=== PATIENT | female | born 1965 | race Caucasian/White ===

== ENCOUNTER 2020-02-05 08:28 | Outpatient (CLI) | payer MEDICARE, SELFPAY ==
--- NOTE | ~2020-02-05 | MM_ITS ---
EXAMINATION: MM screening robles BI w kristina HISTORY: Screening TECHNIQUE: Craniocaudal and mediolateral oblique 3-D tomosynthesis images were obtained and synthetic 2-D images were generated. CAD analysis was submitted and interpreted. COMPARISON: No prior mammogram is available for comparison at this institution. BREAST PARENCHYMAL COMPOSITION: Breast composed of scattered areas of fibroglandular density. FINDINGS: There is no evidence of suspicious mass, calcification, or architectural distortion to sugg est malignancy in either breast. There has been no suspicious interval change. IMPRESSION: 1. No mammographic evidence of malignancy. 2. Recommend routine screening mammography in one year. BI-RADS Category 1: Negative Reviewed, dictated and finalized at location A. TUTOR
--- NOTE | ~2020-02-05 | DEXA_ITS ---
Bone Density Report Name: Tania Rose Age: 54 Sex: Female Ethnicity: White Date of : 1965 Indication: postmenopausal; screening for osteoporosis; Referring Provider: Leann Woody Study: Bone densitometry was performed. Exam Date: February 05, 2020 Accession number: [id number] Bone Density: Region BMD T-score Z-score Classification AP Spine(L1-L4) 0.826 -2.0 -1.1 Osteopenia Femoral Neck (Left) 0.631 -2.0 -1.1 Osteopenia Total Hip (Left) 0.810 -1.1 -0.5 Osteopenia Femoral Neck (Right) 0.657 -1.7 -0.9 Osteopenia Total Hip (Right) 0.835 -0.9 -0.3 Normal Femoral Neck Mean 0.644 -1.8 -1.0 Osteopenia Total Hip Mean 0.823 -1.0 -0.4 Normal World Health Organization criteria for BMD impression classify patients as: Normal (T-score at or above -1.0), Osteopenia (T-score between -1.0 and -2.5), or Osteoporosis (T-score at or below -2.5). 10-year Fracture Risk(1): Major Osteoporotic Fracture 10% Hip Fracture 2.0% Reported Risk Factors: [place] (), Neck BMD=0.631, BMI=43.3, previous fracture, smoking, secondary osteoporosis (1) FRAX(R) Version 3.08. Fracture probability calculated for an untreated patient. Fracture probability may be lower if the patient has received treatment. Impression: The patient has low bone mass, based on the Total Spine T-score. Discussion: BONE DENSITY IS LOW AT ONE OR MORE SKELETAL SITES. This patient's lowest T-score is low at one or more skeletal sites. It meets the World Health Organization's (WHO) criteria for ?low bone mass? (T-score between -1.0 and -2.5). The patient's 10-year risk of fracture as calculated by FRAX is less than the threshold where pharmacological therapy is recommended by the National Osteoporosis Foundation (NOF). However, all treatment decisions require clinical judgment and consideration of individual patient factors, including patient preferences, comorbidities, previous drug use, risk factors not captured in the FRAX model (e.g., frailty, falls, vitamin D deficiency, increased bone turnover, interval significant decline in bone density) and possible under or overestimation of fracture risk by FRAX. The patient should follow a healthful lifestyle (good nutrition with adequate calcium and vitamin D, and appropriate weight-bearing exercise). Follow-Up: Consider repeating this study in 2 to 3 years to reassess this patient's status, or sooner if there is some new clinical indication. Reported by: Dr. Gianni Zhou on 02/05/2020 9:10:00 AM. Reviewed, dictated and finalized at location A. [facility]PITALLucretia
== END 2020-02-05 08:29 | disposition home or self-care (01) ==
LOC: CHSIMG 08:33
PROVIDERS: PCP Family Medicine; Visit Provider Family Medicine
DX: Z12.31 Encounter for screening mammogram for malignant neoplasm of breast (principal); Z78.0 Asymptomatic menopausal state
CPT/HCPCS: 77063; 77067; 77080

== ENCOUNTER 2021-10-09 11:44 | Outpatient (CLI) | payer MEDICARE, MEDICAID, SELFPAY ==
--- NOTE | ~2021-10-09 | CT_ITS ---
EXAMINATION: CT lung screening DATE: 10/09/2021 12:10 INDICATION: Personal history of tobacco dependence TECHNIQUE: Computed tomography (CT) of the chest was performed without intravenous contrast. The dose -length product was 560.36 mGy-cm. Automated exposure control and iterative reconstruction technique were employed. COMPARISON: No prior studies for comparison. FINDINGS: No significant pleural or pericardial effusion. Heart size normal. No thoracic lymphadenopathy. There are calcified mediastinal lymph nodes, consistent with chronic granulomatous disease. No evidence fo r aortic aneurysm. There are calcified granulomas in the spleen. Status post cholecystectomy. There i s an ossific density in the gastric lumen, possible foreign body ingestion. There is linear scarring/ atelectasis in the left upper lobe. No endobronchial lesions. There is a 1 cm nodule in the right mid dle lobe. There is a suture line in the left upper lobe. IMPRESSION: 1. Lung Rads category 4A, suspicious: 3 month follow-up low dose CT or PET/CT scan is recommended. 2: Curvilinear ossific density in the stomach, possibly ingested foreign body. Reviewed, dictated and finalized at location A. IMPRESSION: 1. Lung Rads category 4A, suspicious: 3 month follow-up low dose CT or PET/CT s can is recommended. 2: Curvilinear ossific density in the stomach, possibly ingested foreign body.
[2021-10-09 12:34] LABS: Iron 47 ug/dL (37-170)
[2021-10-09 12:44] LABS: Percent Iron Saturation 13 % (20-50)
[2021-10-09 13:05] VITALS: PULSE 99; O2SAT 95
[2021-10-09 13:10] VITALS: PULSE 119; O2SAT 94
[2021-10-09 13:20] VITALS: PULSE 96; O2SAT 95
--- NOTE | 2021-10-09 14:46 | HOMEO2EVAL ---
Evaluation was performed at [facility] Home Oxygen Evaluation RC: Home Oxygen (O2) Evaluation Start: 10/09/21 14:11 Freq: Status: Active Protocol: RPE Activity Type Activity Date Activity User E-sign Co-sign Detail Recorded Client Recorded Date Recorded By Document 10/09/21 13:05 DJO [email or web address] 10/09/21 14:45 DJO Document 10/09/21 13:10 DJO [email or web address] 10/09/21 14:45 DJO Document 10/09/21 13:20 DJO [email or web address] 10/09/21 14:45 DJO 10/09/21 10/09/21 10/09/21 13:05 13:10 13:20 Home O2 Evaluation Test Phase Resting Exercise Resting Oxygen Delivery Room Air Room Air Room Air Pulse Oximetry (90-100 %) 95 94 95 Pulse Rate (60-100 beats/min) 99 119 H 96 Activity Tolerance Good Rating of Perceived Dyspnea (PD) +3 Moderate Difficulty, But Can Continue Ambulation Distance (feet) 1,000 Ambulation Distance (meters) 304.78 Treatment Charges O2 Evaluation - Outpatient
--- NOTE | 2021-10-12 13:10 | WPDPFTINT ---
PFT Procedure Performed PFT Procedure Performed Spirometry with Pre/Post Bronchodilator Plethysmography (Lung Vol) Diffusing Cap (DLCO) Flow Vol Loop PFT Interpretation Lung volumes were measured with the body plethysmography method. The severely reduced expiratory reserve volume is related to morbid obesity. The remaining lung volumes are unremarkable. Spirometry showed diminished expiratory flow rates and a normal FEV1 to FVC ratio of 80%. Following administration of a bronchodilator there was no significant increase in expiratory flow rates. Lung diffusion capacity is mildly reduced at 62% predicted. The flow volume loop is unremarkable. The restrictive pattern on spirometry in the face of a normal total lung capacity is indicative of a nonspecific pattern. Impression: Nonspecific pattern. Mild reduction in lung diffusion capacity.
== END 2021-10-09 11:45 | disposition home or self-care (01) ==
PROVIDERS: PCP Family Medicine; Visit Provider Nurse Practitioner Family
DX: R06.09 Other forms of dyspnea (principal); J44.9 Chronic obstructive pulmonary disease, unspecified; G25.81 Restless legs syndrome; M25.50 Pain in unspecified joint; Z12.2 Encounter for screening for malignant neoplasm of respiratory organs; Z87.891 Personal history of nicotine dependence
CPT/HCPCS: 36415; 71271; 82728; 83540; 83550; 94060; 94618; 94726; 94729

== ENCOUNTER 2021-10-15 13:35 | Outpatient (CLI) | payer MEDICARE, MEDICAID, SELFPAY ==
[2021-10-21 14:45] LABS: Alpha-1-Antitrypsin, QN 128 mg/dL (83-199)
== END 2021-10-15 13:36 | disposition home or self-care (01) ==
LOC: CHSLAB 13:39
PROVIDERS: PCP Family Medicine; Visit Provider Nurse Practitioner Family
DX: Z14.8 Genetic carrier of other disease (principal)
CPT/HCPCS: 36415; 82103

== ENCOUNTER 2021-11-05 07:20 | Outpatient (CLI) | payer MEDICARE, MEDICAID, SELFPAY ==
--- NOTE | ~2021-11-05 | PE_ITS ---
EXAMINATION: PET skull to mid thigh DATE: 11/05/2021 09:06 INDICATION: Solitary pulmonary nodule TECHNIQUE: Blood glucose level was 125 mg/dL. 11.33 mCi of 18-fluorodeoxyglucose (18-FDG) was adminis tered i.v. Low dose computed tomography (CT) images were acquired from the base of the brain to the p roximal thighs for attenuation correction and anatomic localization. Positron emission tomography (PE T) images were acquired in the same distribution beginning 62 minutes after injection. The dose-lengt h product (DLP) was 1319.67 mGy-cm. COMPARISON: 10/09/2021 FINDINGS: Head/neck: No abnormal FDG uptake is identified. FDG uptake in the oral cavity and vocal cords withou t suspicious CT correlate is likely physiologic. Chest: There is a 9 mm nodule of the right middle lobe without associated FDG uptake. There is mild d iffuse background FDG uptake in the lungs. The lungs are free of focal airspace opacities. No pleural effusion or pneumothorax. No pathologically enlarged thoracic lymph nodes are identified. The heart size is normal. Abdomen/pelvis/proximal thighs: No abnormal FDG uptake is identified. Physiologic FDG activity is pre sent in the bowel and urinary tract. The gallbladder is surgically absent. The liver, spleen, pancrea s, and adrenal glands are normal. The kidneys are unremarkable. No pathologically enlarged abdominal or pelvic lymph nodes are identified. There is no free intraperitoneal gas or evidence of bowel obstr uction. Musculoskeletal: No abnormal FDG uptake is identified. IMPRESSION: 1. 9 mm nodule of the right middle lobe without associated FDG uptake, probably benign. Follow-up low -dose CT in six months is recommended. Reviewed, dictated and finalized at location B. IMPRESSION: 1. 9 mm nodule of the right middle lobe without associated FDG uptake, probably benign. Follow-up low-dose CT in six months is recommended.
[2021-11-05 07:45] LABS: Glucose Point of Care 125 mg/dl (65-105)
== END 2021-11-05 07:21 | disposition home or self-care (01) ==
LOC: ANHIMG 07:24
PROVIDERS: PCP Family Medicine; Visit Provider Internal Medicine Critical Care Medicine
DX: R91.1 Solitary pulmonary nodule (principal)
CPT/HCPCS: 78815; A9552

== ENCOUNTER 2021-11-10 07:52 | Outpatient (CLI) | payer MEDICARE, MEDICAID, SELFPAY ==
--- NOTE | 2021-12-17 10:19 | WPDSLEEPSTUD ---
Sleep Study Date of Study: 11/10/21 Ordering Provider: Luba John MD Interpreting Physician: Luba John MD Sleep Study Type: CPAP Titration Height: 1.55 m Weight: 117.48 kg Body Mass Index: 48.9 Neck Circumference (inches): 19.5 [place]: 13 Reason for Sleep Study obstructive sleep apnea, has gained weight in the last year and her current setting is not effective, she presents for a titration Sleep History Tania Rose is a 56-year-old female with obstructive sleep apnea syndrome. She has been using 9 cm of water pressure but over the last year this is less effective. She is compliant. She has complaints of insomnia, and she has used hydroxyzine with some help. She is extremely short of breath on lying down at night, cannot catch her breath. She reports gaining 24 lb in the last year, now 246 lb. The titration a year ago showed that she needed 13 cm and she was using 9 cm until recently. She feels like she is losing her breath at night. She has difficulty falling asleep and staying asleep. She constantly awakens from sleep feeling short of breath, with heartburn belching and coughing, with loud snoring. She constantly has trouble sleeping with a cold. She always gasps for breath at night. She constantly sweats excessively at night. She rarely notices her heart pounding or beating irregularly at night. She does not fall asleep during the day, does not fall asleep involuntarily or while driving. She does not have loss of muscle tone with strong emotion. She does not have daytime difficulties due to excessive sleepiness. She does not feel paralyzed on waking or falling asleep. She does not have vivid dreamlike scenes on waking or falling asleep. She does not feel afraid to go to sleep. She rarely has nightmares. She constantly remembers her dreams. She rarely has racing thoughts. She occasionally feels sad or depressed. She does not have anxiety. She constantly has muscular tension and notices parts of her body jerking. She constantly kicks at night. She constantly has crawling and aching feelings in her legs. She does not have any kind of leg pain at night or have morning jaw pain. She constantly grinds her teeth during sleep. She constantly is bothered by pain during the day and awakened by pain at night. She constantly wakes up feeling stiff in the morning with sore achy muscles and pain in the neck and spine. She has headaches, depression, and she feels panicky. Normal bedtime is 7:30 p.m. taking a few hours to fall asleep typically waking 6 times at night to watch television. She will stay awake for an hour. She wakes the morning by 8:00 a.m.. Weekend schedule is the same. She estimates getting 5 hours of sleep at night. She denies taking naps in the day. A short nap lasting 10 or 15 minutes is not refreshing. She is usually drowsy for 2 hours after waking. She feels better in the morning compared to other times of day. Habits: Quit tobacco. Caffeine 8 glasses a day. No alcohol or recreational drugs. [facility] Past Medical History Medical History Anxiety Arthritis Asthma Carpal tunnel syndrome delivery delivered Chronic GERD COPD (chronic obstructive pulmonary disease) Migraines Osteoporosis Sciatica Thyroid disease Ulcer Surgical History Surgical History History of hysterectomy History of lung surgery lung needle biopsy per patient many years ago Hx of cholecystectomy Family History Family History Father Hypertension Mother Asthma Depression Cerebrovascular accident Social History Social History Smoking packs per day: 1 Smoking cigarettes per day: 20.0 Years smoked: 30 Smoking pack-years: 30.00 Smoking status: Current every day s
[2021-12-17 11:03] VITALS: BMI 48.9
== END 2021-11-11 03:46 | disposition home or self-care (01) ==
PROVIDERS: PCP Family Medicine; Visit Provider Internal Medicine Critical Care Medicine
DX: G47.33 Obstructive sleep apnea (adult) (pediatric) (principal); G25.81 Restless legs syndrome; Z72.821 Inadequate sleep hygiene
CPT/HCPCS: 95811

== ENCOUNTER 2022-12-06 13:38 | Emergency (ER) | payer MEDICARE, MEDICAID, SELFPAY ==
[2022-12-06 13:41] VITALS: BP 125/63; PULSE 78; RESP 20; TEMP 36.8; O2SAT 95
--- NOTE | 2022-12-06 13:56 | ED.LOWEXIN ---
HPI - Extremity Injury (Lower) General Chief Complaint: Extremity Injury, Upper Stated Complaint: Fall/ L hip pain Time Seen by Provider: 12/06/22 13:52 Source: patient Mode of arrival: ambulatory Limitations: no limitations History of Present Illness HPI Narrative: 57 year old female presents to the Emergency Department complaining of pain to hip [left buttock region]. Patient states she fell 12/02/22. She was seen by Primary Care Physician and x-rays were performed which were negative. States she continues to have pain. She normally takes Hydrocodone 7.5 mg 2x/day. MD complaint: hip injury Onset (ago): day(s) (4 days ago) Type of Injury: other (fall) Place: home Relieving factors: nothing Exacerbating factors: palpation Context: fall Related Data Home Medications Medication Instructions Recorded Confirmed aripiprazole 10 mg tablet 10 mg PO DAILY 09/17/21 12/06/22 atorvastatin 80 mg tablet 80 mg PO QHS 09/17/21 12/06/22 calcium carbonate 600 mg-vitamin 1 cap PO BID 09/17/21 12/06/22 D3 10 mcg (400 unit) capsule cetirizine 10 mg tablet 10 mg PO DAILY PRN ALLERGIES 09/17/21 12/06/22 cholecalciferol (vitamin D3) 25 25 mcg PO DAILY 09/17/21 12/06/22 mcg (1,000 unit) capsule cyanocobalamin (vitamin B-12) 1,000 mcg IM MONTHLY 09/17/21 12/06/22 1,000 mcg/mL injection kit denosumab 60 mg/mL subcutaneous 60 mg subcut [id number] 09/17/21 12/06/22 syringe (Prolia) fluoxetine 20 mg capsule 20 mg PO DAILY 09/17/21 12/06/22 fluticasone propionate 50 2 spray intranasal DAILY 09/17/21 12/06/22 mcg/actuation nasal spray,suspension galcanezumab-gnlm 120 mg/mL 120 mg subcut MONTHLY 09/17/21 12/06/22 subcutaneous pen injector (Emgality Pen) hydrocodone 5 mg-acetaminophen 325 1 - 2 tablet PO BID PRN Pain 09/17/21 12/06/22 mg tablet levothyroxine 200 mcg tablet 200 mcg PO DAILY 09/17/21 12/06/22 (Synthroid) nystatin 100,000 unit/gram topical 1 applic topical TID PRN IRRITATION 09/17/21 12/06/22 powder omega 8-ydl-xus-fish oil 60 mg-90 1 cap PO DAILY 09/17/21 12/06/22 mg-500 mg capsule (Fish Oil) pantoprazole 40 mg tablet,delayed 40 mg PO QAM 09/17/21 12/06/22 release gabapentin 600 mg tablet 300 mg PO QHS 03/31/22 12/06/22 alprazolam 0.5 mg tablet 0.5 mg PO BID 12/06/22 12/06/22 trazodone 100 mg tablet 100 mg PO HS PRN Insomnia 12/06/22 12/06/22 Allergies Allergy/AdvReac Type Severity Reaction Status Date / Time acetaminophen AdvReac Unknown Unknown Verified 12/06/22 13:52 [From Darvocet-N 100] codeine AdvReac Unknown Nausea Verified 12/06/22 13:52 cyclobenzaprine AdvReac Unknown sedating Verified 12/06/22 13:52 propoxyphene AdvReac Unknown Unknown Verified 12/06/22 13:52 [From Darvocet-N 100] tizanidine AdvReac Unknown Hypotension Verified 12/06/22 13:52 Review of Systems Review of Systems: All systems reviewed & are unremarkable except as noted in HPI and below Constitutional: Constitutional: Reports as per HPI and Reports no additional constitutional complaints Eyes: Eyes: Reports as per HPI ENT: Reports system reviewed and no additional complaints, except as documented Cardiovascular: Cardiovascular: Reports as per HPI Respiratory: Respiratory: Reports as per HPI Gastrointestinal: Gastrointestinal: Reports as per HPI Genitourinary: Genitourinary: Reports no additional female genitourinary complaints Musculoskeletal: Musculoskeletal: Reports no additional musculoskeletal complaints and Reports as per HPI Comments: pain left buttock region Integumentary/Breasts: Skin/Breast: Reports system reviewed and no additional complaints, except as docu Neurologic: Reports system reviewed and no additional complaints, except as documented PMF Past Medical History Medical History Anxiety Arthritis Asthma Carpal tunnel syndrome delivery delivered Chronic GERD COPD (chronic obstructive pulmonary disease) Migrain
[2022-12-06] MEDS: methylPREDNISolone ACETATE 40 MG/ML VIAL 80 MG IM (14:09)
[2022-12-06 14:18] VITALS: BP 126/62; PULSE 84; RESP 19; TEMP 36.6; O2SAT 98
== END 2022-12-06 14:25 | disposition home or self-care (01) ==
LOC: CHSED 14:15
PROVIDERS: Emergency Provider Emergency Medicine; PCP Family Medicine
DX: M54.32 Sciatica, left side (principal); J44.9 Chronic obstructive pulmonary disease, unspecified; M81.0 Age-related osteoporosis without current pathological fracture; K21.9 Gastro-esophageal reflux disease without esophagitis; F41.9 Anxiety disorder, unspecified; E07.9 Disorder of thyroid, unspecified; Z87.891 Personal history of nicotine dependence; F12.90 Cannabis use, unspecified, uncomplicated; Z79.891 Long term (current) use of opiate analgesic; Z79.620 Long term (current) use of immunosuppressive biologic; Z79.51 Long term (current) use of inhaled steroids
CPT/HCPCS: 96372; 99283; J1030

== ENCOUNTER 2023-01-16 15:57 | Emergency (ER) | payer MEDICARE, MEDICAID, SELFPAY ==
--- NOTE | ~2023-01-16 | XR_ITS ---
EXAM: XR ankle RT min 3V DATE: 01/16/2023 16:47 HISTORY: felt pop this morning, pain laterally hx 2 fx of rt ankle . COMPARISON: None available. FINDINGS: Normal mineralization. Circumscribed ossific fragment adjacent to the medial malleolus. Mi ld degenerative change at the tibiotalar joint. No lytic or blastic lesion. Achilles and plantar enth esopathy. No erosion or periosteal change. Soft tissues within normal limits. IMPRESSION: Ossific fragment adjacent to the medial malleolus, likely representing an old avulsion fr acture fragment, unless accompanied by acute pain/tenderness. Otherwise, no acute osseous finding in the right ankle. Reviewed, dictated and finalized at location K. CS OFFICER IMPRESSION: Ossific fragment adjacent to the medial malleolus, likely represent ing an old avulsion fracture fragment, unless accompanied by acute pain/tendern ess. Otherwise, no acute osseous finding in the right ankle.
[2023-01-16 15:57] VITALS: BP 115/65; PULSE 78; RESP 20; TEMP 36.6; O2SAT 100
--- NOTE | 2023-01-16 16:30 | ED.LOWEXIN ---
HPI - Extremity Injury (Lower) General Chief Complaint: Extremity Problem,Nontraumatic Stated Complaint: ankle pain Source: patient and RN notes reviewed Mode of arrival: ambulatory Limitations: no limitations History of Present Illness MD complaint: ankle injury Onset (ago): hour(s) (4) Type of Injury: inversion Place: home Severity: moderate Relieving factors: rest Exacerbating factors: weight bearing, movement and palpation Context: walking Associated symptoms: snap/pop sensation Other symptoms: none Related Data Home Medications Medication Instructions Recorded Confirmed aripiprazole 10 mg tablet 10 mg PO DAILY 09/17/21 12/06/22 atorvastatin 80 mg tablet 80 mg PO QHS 09/17/21 12/06/22 calcium carbonate 600 mg-vitamin 1 cap PO BID 09/17/21 12/06/22 D3 10 mcg (400 unit) capsule cetirizine 10 mg tablet 10 mg PO DAILY PRN ALLERGIES 09/17/21 12/06/22 cholecalciferol (vitamin D3) 25 25 mcg PO DAILY 09/17/21 12/06/22 mcg (1,000 unit) capsule cyanocobalamin (vitamin B-12) 1,000 mcg IM MONTHLY 09/17/21 12/06/22 1,000 mcg/mL injection kit denosumab 60 mg/mL subcutaneous 60 mg subcut [id number] 09/17/21 12/06/22 syringe (Prolia) fluoxetine 20 mg capsule 20 mg PO DAILY 09/17/21 12/06/22 fluticasone propionate 50 2 spray intranasal DAILY 09/17/21 12/06/22 mcg/actuation nasal spray,suspension galcanezumab-gnlm 120 mg/mL 120 mg subcut MONTHLY 09/17/21 12/06/22 subcutaneous pen injector (Emgality Pen) hydrocodone 5 mg-acetaminophen 325 1 - 2 tablet PO BID PRN Pain 09/17/21 12/06/22 mg tablet levothyroxine 200 mcg tablet 200 mcg PO DAILY 09/17/21 12/06/22 (Synthroid) nystatin 100,000 unit/gram topical 1 applic topical TID PRN IRRITATION 09/17/21 12/06/22 powder omega 8-dym-odh-fish oil 60 mg-90 1 cap PO DAILY 09/17/21 12/06/22 mg-500 mg capsule (Fish Oil) pantoprazole 40 mg tablet,delayed 40 mg PO QAM 09/17/21 12/06/22 release gabapentin 600 mg tablet 300 mg PO QHS 03/31/22 12/06/22 alprazolam 0.5 mg tablet 0.5 mg PO BID 12/06/22 12/06/22 trazodone 100 mg tablet 100 mg PO HS PRN Insomnia 12/06/22 12/06/22 Allergies Allergy/AdvReac Type Severity Reaction Status Date / Time acetaminophen AdvReac Unknown Unknown Verified 12/06/22 13:52 [From DarHaloadcet-N 100] codeine AdvReac Unknown Nausea Verified 12/06/22 13:52 cyclobenzaprine AdvReac Unknown sedating Verified 12/06/22 13:52 propoxyphene AdvReac Unknown Unknown Verified 12/06/22 13:52 [From Darvocet-N 100] tizanidine AdvReac Unknown Hypotension Verified 12/06/22 13:52 Review of Systems Review of Systems: All systems reviewed & are unremarkable except as noted in HPI and below PMFSH Past Medical History Medical History Anxiety Arthritis Asthma Carpal tunnel syndrome delivery delivered Chronic GERD COPD (chronic obstructive pulmonary disease) Migraines Osteoporosis Sciatica Thyroid disease Ulcer Surgical History Surgical History History of hysterectomy History of lung surgery lung needle biopsy per patient many years ago Hx of cholecystectomy Family History Family History Father Hypertension Mother Asthma Depression Cerebrovascular accident Social History Social History Smoking packs per day: 1 Smoking cigarettes per day: 20.0 Years smoked: 30 Smoking pack-years: 30.00 Smoking status: Former smoker (quit 2 mo ago) Tobacco type: cigarettes Alcohol intake: never Substance use: current Substance use type: marijuana Last use: rare, last 1 month ago to help with sleep Living arrangements: with family Occupation/Education: other 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
[2023-01-16 16:56] VITALS: RESP 20; O2SAT 98
== END 2023-01-16 17:13 | disposition home or self-care (01) ==
PROVIDERS: Emergency Provider Emergency Medicine
DX: S93.491A Sprain of other ligament of right ankle, initial encounter (principal); J44.9 Chronic obstructive pulmonary disease, unspecified; Z87.891 Personal history of nicotine dependence; X50.0XXA Overexertion from strenuous movement or load, initial encounter; Y92.009 Unspecified place in unspecified non-institutional (private) residence as the place of occurrence of the external cause
CPT/HCPCS: 29515; 73610; 99283; L4350

== ENCOUNTER 2023-02-20 12:06 | Emergency (ER) | payer MEDICARE, MEDICAID, SELFPAY ==
[2023-02-20 12:06] VITALS: BP 112/57; PULSE 76; RESP 18; TEMP 36.8; O2SAT 94
--- NOTE | 2023-02-20 12:18 | ED.URI ---
HPI - URI/Sore Throat General Chief Complaint: Upper Respiratory Infection Stated Complaint: body aches and fever Time Seen by Provider: 02/20/23 12:14 Source: patient Mode of arrival: ambulatory Limitations: no limitations History of Present Illness HPI Narrative: patient is a 57-year-old female with exposure to COVID a week ago. She went to her primary doctor last week and got prednisone and azithromycin. She is still taking these medications. She is here with still feeling sick after 1 week. MD elicited complaint: fever, cough, rhinorrhea and nasal congestion Onset (ago): week(s) (1) Consistency: constant Severity: moderate Description of mucous: clear Able to tolerate fluids by mouth: Yes Exacerbating factors: nothing Relieving factors: nothing Context: sick contacts Associated symptoms: fever, chills, myalgias, headache, rhinorrhea and nasal congestion Treatments prior to arrival: antibiotics ( She is on Z-Pk and prednisone) Related Data Home Medications Medication Instructions Recorded Confirmed aripiprazole 10 mg tablet 10 mg PO DAILY 09/17/21 12/06/22 atorvastatin 80 mg tablet 80 mg PO QHS 09/17/21 12/06/22 calcium carbonate 600 mg-vitamin 1 cap PO BID 09/17/21 12/06/22 D3 10 mcg (400 unit) capsule cetirizine 10 mg tablet 10 mg PO DAILY PRN ALLERGIES 09/17/21 12/06/22 cholecalciferol (vitamin D3) 25 25 mcg PO DAILY 09/17/21 12/06/22 mcg (1,000 unit) capsule cyanocobalamin (vitamin B-12) 1,000 mcg IM MONTHLY 09/17/21 12/06/22 1,000 mcg/mL injection kit denosumab 60 mg/mL subcutaneous 60 mg subcut [id number] 09/17/21 12/06/22 syringe (Prolia) fluoxetine 20 mg capsule 20 mg PO DAILY 09/17/21 12/06/22 fluticasone propionate 50 2 spray intranasal DAILY 09/17/21 12/06/22 mcg/actuation nasal spray,suspension galcanezumab-gnlm 120 mg/mL 120 mg subcut MONTHLY 09/17/21 12/06/22 subcutaneous pen injector (Emgality Pen) hydrocodone 5 mg-acetaminophen 325 1 - 2 tablet PO BID PRN Pain 07/21/22 10/09/23 mg tablet levothyroxine 200 mcg tablet 200 mcg PO DAILY 09/17/21 12/06/22 (Synthroid) nystatin 100,000 unit/gram topical 1 applic topical TID PRN IRRITATION 09/17/21 12/06/22 powder omega 1-epl-syk-fish oil 60 mg-90 1 cap PO DAILY 09/17/21 12/06/22 mg-500 mg capsule (Fish Oil) pantoprazole 40 mg tablet,delayed 40 mg PO QAM 09/17/21 12/06/22 release gabapentin 600 mg tablet 300 mg PO QHS 03/31/22 12/06/22 alprazolam 0.5 mg tablet 0.5 mg PO BID 12/06/22 12/06/22 trazodone 100 mg tablet 100 mg PO HS PRN Insomnia 12/06/22 12/06/22 Allergies Allergy/AdvReac Type Severity Reaction Status Date / Time acetaminophen AdvReac Unknown Unknown Verified 02/20/23 12:15 [From Darvocet-N 100] codeine AdvReac Unknown Nausea Verified 02/20/23 12:15 cyclobenzaprine AdvReac Unknown sedating Verified 02/20/23 12:15 propoxyphene AdvReac Unknown Unknown Verified 02/20/23 12:15 [From Darvocet-N 100] tizanidine AdvReac Unknown Hypotension Verified 02/20/23 12:15 Review of Systems Review of Systems: All systems reviewed & are unremarkable except as noted in HPI and below Constitutional: Constitutional: Reports no additional constitutional complaints Eyes: Eyes: Reports no additional eye complaints ENT: Reports system reviewed and no additional complaints, except as documented Cardiovascular: Cardiovascular: Reports no additional cardiovascular complaints Respiratory: Respiratory: Reports no additional respiratory complaints Gastrointestinal: Gastrointestinal: Reports no additional gastrointestinal complaints Genitourinary: Genitourinary: Reports no additional female genitourinary complaints Musculoskeletal: Musculoskeletal: Reports no additional musculoskeletal complaints Integumentary/Breasts: Skin/Breast: Reports system reviewed and no additional complaints, except as docu Neurologic: Reports system reviewed and no additional complaints, except as documented Psychiatric: Psychiatric: Repo
[2023-02-20 12:20] VITALS: O2SAT 98
[2023-02-20 13:02] LABS: SARS-CoV-2 RNA PCR Positive (Negative)
[2023-02-20 13:05] LABS: Influenza A QL RT-PCR Negative (Negative); Influenza B QL RT-PCR Negative (Negative); RSV RNA, RT-PCR Negative (Negative)
[2023-02-20 13:21] VITALS: BP 103/61; PULSE 67; RESP 18; O2SAT 95
[2023-02-20 13:24] VITALS: TEMP 36.9
== END 2023-02-20 13:29 | disposition home or self-care (01) ==
PROVIDERS: Emergency Provider Emergency Medicine
DX: U07.1 COVID-19 (principal); J44.9 Chronic obstructive pulmonary disease, unspecified; Z87.891 Personal history of nicotine dependence
CPT/HCPCS: 87637; 99283

== ENCOUNTER 2024-06-10 15:04 | Emergency (ER) | payer MEDICARE, MEDICAID, SELFPAY ==
--- NOTE | ~2024-06-10 | XR_ITS ---
EXAM: XR hand RT min 3V DATE: 06/10/2024 15:17 HISTORY: slammed Rt. hand in car door. Pain across 2-5th MCP . COMPARISON: None available. FINDINGS: Normal mineralization. No fracture or dislocation. No lytic or blastic lesion. Mild scatte red degenerative changes. No erosion or periosteal change. Soft tissues within normal limits. IMPRESSION: No acute osseous finding in the right hand. Reviewed, dictated and finalized at location K.
[2024-06-10 15:06] VITALS: BP 105/61; PULSE 88; RESP 18; TEMP 36.8; O2SAT 95
--- OUTSIDE RECORDS SUMMARY | 2024-06-10 15:07 | XMS_ITS | Continuity of Care Document ---
Author Organization [facility] - Main Address [address] [place] [address] Insurance Providers Payer Plan Claims Address Claims Phone Policy Number Group Number Relation Employer Guarantor Name Guarantor Guarantor Address Guarantor Phone [employer] [facility] [id number] Self Tania [place] 1965 [address] [place] [address] [place] Medic aid [id number] Self Tania [place] 1965 [address] [place] [address] [employer] [id number], [place], [place] [id number] Self Tania [place] 1965 [address] [place] [address] Problems Unknown Problems Results No Results Allergies, adverse reactions, alerts No known allergies and adverse reactions Medications No administered medications reported Vital Signs No vital signs reported Social History No smoking Hx information available
--- OUTSIDE RECORDS SUMMARY | 2024-06-10 15:07 | XMS_ITS | Clinical Summary ---
Author Organization [facility] Address [address] [place] [address] Care Team Providers Care Frame Stripper Name Role Phone Leann Woody MD Primary Care Provider [phone] Source Comments [facility],non-owned Affiliates and Associated Physician Practices is amultiple site organization consisting of ambulatory clinics and hospital sitesin [place], [place], [place] and [place]. This disclosure is being madepursuant to the Care Everywhere program and may not contain all information available regarding this patient. Last updated 17.[facility] Allergies Active Allergy Reactions Criticality Noted Date Comments Acetaminophen-Codeine Nausea and/or Vomiting Propoxyphene Unknown 2013 welts Medications * Be aware that medications may not be up to date on this document. Alwaysverify current medications with the patient. ARIPiprazole (ABILIFY) 5 MG tablet Take 1 tablet by mouth once daily 06/27/2019 Active atorvastatin (LIPITOR) 80 MG tablet Take 1 tablet by mouth once daily 04/28/2019 Active celecoxib (CELEBREX) 200 MG capsule Take 1 capsule by mouth once daily 06/16/2019 Active ALPRAZolam (XANAX) 0.5 MG tablet Take 1 tablet by mouth once daily 06/28/2019 Active DULoxetine (CYMBALTA) 30 MG capsule Take 1 capsule by mouth once daily 05/11/2019 Active famotidine (PEPCID) 40 MG tablet Take 1 tablet by mouth once daily 05/07/2019 Active FLUoxetine (PROZAC) 20 MG capsule Take 1 capsule by mouth once daily 08/01/2020 Active furosemide (LASIX) 40 MG tablet Take 1 tablet by mouth once daily 06/11/2019 Active gabapentin (NEURONTIN) 300 MG capsule Take 1 capsule by mouth once daily 06/28/2019 Active levothyroxine (SYNTHROID) 200 MCG tablet Take 1 tablet by mouth once daily 05/05/2019 Active metFORMIN ER 24hr (GLUCOPHAGE XR) 500 MG tablet Take 1 tablet by mouth once daily 06/16/2019 Active pantoprazole EC (PROTONIX) 40 MG tablet Take 1 tablet by mouth once daily 05/14/2019 Active QUEtiapine (SEROQUEL) 100 MG tablet Take 1 tablet by mouth once daily 05/16/2019 Active rizatriptan (MAXALT) 10 MG tablet Take 10 mg by mouth every 24 hours as needed 05/07/2019 Active rOPINIRole (REQUIP) 4 MG tablet Take 1 tablet by mouth once daily 05/28/2019 Active topiramate (TOPAMAX) 100 MG tablet Take 1 tablet by mouth once daily 06/05/2019 Active traZODone (DESYREL) 150 MG tablet Take 1 tablet by mouth once daily 07/21/2020 Active Active Problems Problem Noted Date Diagnosed Date Dizziness 06/30/2020 Depression 07/12/2019 Other hyperlipidemia 07/12/2019 Restless legs syndrome (RLS) 07/12/2019 Sleep apnea 07/12/2019 Greater trochanteric bursitis of right hip 08/09 Social History Tobacco Use Types Packs/Day Years Used Date Smoking Tobacco: Every Day Smokeless Tobacco: Never Comments Unknown Sex and Gender Information Value Date Recorded Sex Assigned at Not on file Legal Sex Female 4:22 PM CDT Gender Identity Not on file Sexual Orientation Not on file Last Filed Vital Signs Vital Sign Reading Time Taken Comments Blood Pressure - - Pulse - - Temperature - - Respiratory Rate - - Oxygen Saturation - - Inhaled Oxygen Concentration - - Weight 100.7 kg (222 lb) 08/21/2020 4:07 PM CDT Height 154.9 cm (5' 1 ) 08/21/2020 4:07 PM CDT Body Mass Index 41.95 08/21/2020 4:07 PM CDT Plan of Treatment Health Maintenance Due Date Last Done Comments COLOGUARD (AGES 45-75) - COL ON CA SCREENING 1965 COLON MONITORING 1967 COLONOSCOPY - COLON CA SCREENING 1967 CT COLONOGRAPHY - COLON CA SCREENING 1965 Colorectal Cancer Screening 1967 FIT - COLON CA SCREENING 1967 FLEX SIG - COLON CA SCREENING 1965 MAMMOGRAM 1965 PAP SMEAR 1967 HIV SCREENING 11/12/1982 HEPATITIS C SCREENING 11/08/1985 DTAP/TDAP/TD VACCINES (1 - Tdap) 11/12/1986 HEPATITIS B VACCINE (1 of 3 - 19+ 3-dose series) 11/12/1986 PNEUMOCOCCAL VACCINE 50+ (1 of 2 - PCV) 11/12/1986 PNEUMOCOCCAL VACCINE (1 of 2 - PCV) 11/12/1986 ZOSTER VACCINE (1 of 2) 11/12/2017 SCREENING FOR DIABETES 08/21/2020 COVID-19 VACCINE (1 - 2023-2 5 season) 2023 DEPRESSION SCREENING 02/29/2024 INFLUENZA VACCINE (Season Ended) 2024 HIB VACCINE Aged Out No longer eligi ble based on patient's age to complete this topic HPV VACCINE Aged Out No longer eligi ble based on patient's age to complete this topic MENINGOCOCCAL (Group B) VACC INE SHARED DECISION-MAKING Aged Out No longer eligibl e based on patient's age to complete this topic MENINGOCOCCAL GROUPS A/C/Y/W VACCINE Aged Out No longer eligible b ased on patient's age to complete this topic Insurance [employer] [facility] Care Address: [facility] [id number] [place] [address] Care Teams Frame Stripper Relationship Specialty Start Date End Date Leann Woody MD PCP - General Family Medicine 11/13/20
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
--- OUTSIDE RECORDS SUMMARY | 2024-06-10 15:25 | XMS_ITS | Clinical Summary ---
Author Organization [facility] Address Formerly [facility] [place] [address] Care Team Providers Care Regroover Name Role Phone Leann Woody MD Primary Care Provider [phone] Tirso Rajput MD Unavailable Unavailable Allergies Active Allergy Reactions Criticality Noted Date Comments Codeine Nausea Only 10/02/2021 Propoxyphene Other (see comment) 2013 welts Insect Stings Other (see comment) 10/01/2021 Bee stings Wound Dressing Adhesive Other (see comment) Blistering of skin unknown if due to Mastisol or Steri-strips (See note encounter on 01-20-2024) Naproxen Other (see comment) 06/02/2021 Welts Seasonal Runny Nose 10/02/2021 Medications atorvastatin 80 MG tabletIndication s:Hyperlipidemia Take 1 tablet (80 mg total) by mouth nightly at bedtime. Indications: High Amount of Fats in the Blood 07/18/19 19 Active BREZTRI AEROSPHERE 160-9-4.8 MCG/ACT Aerosol Inhale 2 puffs into the lungs 2 (two) times a day. 12/22/19 22 Active FLUoxetine (PROZAC) 40 MG capsuleIndicatio ns:Anxiety Take 1 capsule (40 mg total) by mouth daily. Indications: Feeling Anxious 30 capsule 03/23/19 23 Active ALPRAZolam (XANAX) 0.5 MG tablet Take 1 tablet (0.5 mg total) by mouth 2 (two) times daily as needed. 04/06/19 23 Active cetirizine (ZYRTEC) 10 MG tablet Take 1 tablet (10 mg total) by mouth daily. 04/16/19 24 Active calcium carbonate (OS-NACHO) 600 MG tablet Take 1 tablet (600 mg total) by mouth 2 (two) times daily. Active albuterol (PROVENTIL) (2.5 MG/3ML) 0.083% nebulizer solution Take 3 mLs (2.5 mg total) by nebulization every 6 (six) hours as needed for Wheezing. 360 mL 05/17/19 24 Active Multiple Vitamin (MULTI-VITAMIN) tabletIndication s:Nutritional Support Take 1 tablet by mouth daily. Indications: Nutritional Support 30 tablet 05/17/19 24 Active rOPINIRole (REQUIP) 1 MG tablet Take 1 tablet (1 mg total) by mouth nightly. 90 tablet 05/17/19 24 Active vitamin D3 (CHOLECALCIFEROL ) 25 mcg tablet Take 1 tablet (1,000 Units total) by mouth daily. 30 tablet 05/17/19 24 Active omeprazole (PRILOSEC) 20 MG capsule Take 1 capsule (20 mg total) by mouth daily. 06/17/19 24 Active naloxone (NARCAN) 4 MG/0.1ML nasal spray 1 spray by Nasal route as needed for Opioid reversal. may repeat every 2 to 3 minutes in alternating nostrils until medical assistance becomes available 1 each 10/25/19 24 025 Active denosumab (PROLIA) 60 MG/ML injection Inject 1 mL (60 mg total) into the skin every 6 (six) months. Active Aripiprazole 20 MG Tab Use as directed 20 mg in the mouth or throat nightly. 11/08/19 24 Active levothyroxine (SYNTHROID) 150 MCG tablet Take 1 tablet (150 mcg total) by mouth every morning. 11/15/19 24 Active nystatin (MYCOSTATIN) cream Apply topically as needed for Dry skin. 12/14/19 24 Active B-D 3CC LUER-JACI SYR 25GX1 25G X 1 3 ML Misc 01/16/20 24 Active tiZANidine (ZANAFLEX) 4 MG tablet Take 1 tablet (4 mg total) by mouth. 01/23/20 24 Active traZODone (DESYREL) 100 MG tablet Take 1 tablet (100 mg total) by mouth nightly at bedtime. 01/17/20 24 Active gabapentin (NEURONTIN) 300 MG capsule Take 1 capsule (300 mg total) by mouth daily. 03/10/19 25 Active diphenhydrAMINE (BENADRYL) 25 MG capsule Take 1 capsule (25 mg total) by mouth every 6 (six) hours as needed (Take with the Toradol). 20 capsule 05/03/19 25 Active baclofen (LIORESAL) 10 MG tablet Take 1 tablet (10 mg total) by mouth 3 (three) times daily. 05/03/19 25 Active cyanocobalamin (B-12) 1000 MCG/ML injection Inject 1 mL (1,000 mcg total) into the muscle every 30 (thirty) days. 04/30/19 25 Active HYDROcodone-acet aminophen (NORCO) 7.5-325 MG tablet Take 1 tablet by mouth every 6 (six) hours as needed. 05/08/19 25 Active methylPREDNISolo ne, YOON, (MEDROL DOSEPAK) 4 MG tabletIndication s:History of revision of total replacement of right knee joint,Orthopedic aftercare,Fall from ground level 4 mg Oral Tablet Therapy Pack. Follow package directions 1 each 05/23/19 25 Active diclofenac EC (VOLTAREN) 75 MG tabletIndication s:History of revision of total replacement of right knee joint,Orthopedic aftercare,Fall from ground level Take 1 tablet (75 mg total) by mouth 2 (two) times daily. 60 tablet 05/23/19 25 Active KNEE BRACE MISC, DME,Indications: Decreased Range of Motion,Lacking full extension 6 weeks post op after full revision RIGHT total knee arthroplasty Apply 1 Device topically daily. Indications: Decreased Range of Motion, Lacking full extension 6 weeks post op after full revision RIGHT total knee arthroplasty Fit and apply extension brace to RIGHT knee. Will need a Ehsan/Dynasplin t knee brace or their equivalent 1 Device 02/27/20 24 025 Discontinu ed(Therapy completed) oxyCODONE-acetam inophen (PERCOCET) 7.5-325 MG tabletIndication s:Chronic Pain Take 1 tablet by mouth every 4 (four) hours as needed for Pain. Indications: Chronic Pain 30 tablet 05/01/19 25 025 Discontinu ed(Therapy completed) aspirin 81 MG chewable tablet Chew 1 tablet (81 mg total) by mouth 2 (two) times daily for 14 days. 28 tablet 05/01/19 025 ketorolac (TORADOL) 10 MG tablet Take 1 tablet (10 mg total) by mouth every 6 (six) hours as needed for Pain. 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 10/10/2023 Aftercare following right knee joint replacement surgery 06/09/2023 Pes anserine bursitis 06/09/2023 Abnormal levels of other serum enzymes Right ankle pain 03/16/2023 Pes planus of right foot 02/08/2023 History of ankle surgery 02/08/2023 Urge incontinence 04/06/2022 Weakness of both legs 03/31/2022 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 02/04/2022 Dyspnea on exertion 02/04/2022 Morbid obesity with BMI of 45.0-49.9, adult 06/29 Chronic osteoarthritis 03/25/2020 Depression 07/12/2019 Other hyperlipidemia 07/12/2019 Restless legs syndrome (RLS) 07/12/2019 Sleep apnea 07/12/2019 Psychophysiological insomnia 07/12/2019 Arthritis of right subtalar joint 09/20/2018 Right ankle instability 08/09/2018 Greater trochanteric bursitis of right hip 08/09 History of revision of total replacement of right knee joint 08/24/2017 Overview (01/30/2024): >>OVERVIEW FOR CHONDROMALACIA OF RIGHT PATELLOFEMORAL JOINT WRITTEN ON 08/03/2018 11:49 AM BY AUREA JERRY Transitioned From: Chondromalacia of right patella COPD (chronic obstructive pu lmonary disease) ([facility]) 11/26/2015 Resolved Problems Problem Noted Date Diagnosed Date Resolved Date Aftercare following joint replacement surgery 01/17/2001/17/2024 Pain due to internal orthope dic prosthetic devices, implants and grafts, initial encounter 08/08/2023 01/30/2024 Contusion of left hip, initial encounter 05/17/2023 05/17/2023 Fever, unspecified 05/17/2023 Pain in right knee 05/17/2023 Peroneal tendinitis, right leg 05/17/2023 05/17/2023 Other instability, right ankle 05/17/2023 05/17/2023 Primary osteoarthritis of right knee 03/18/2023 01/17/2024 Altered mental status 03/22/20222022 Urinary tract infection 03/21/202203/01 Dizziness 06/30/2020 02/03/2022 Other closed fracture of dis ana luisa end of right fibula with nonunion, subsequent encounter 08/30/2018 01/30/2024 Patellofemoral disorder of right knee 08/17/2018 01/17/2024 Patellofemoral pain syndrome of right knee 08/09/2018 01/17/2024 Hip pain 08/09/2018 01/17/2024 Encounters Date Type Department Care Team Description 06/07/2024 8:45 AM CDT - 06/07/2024 11:59 PM CDT Hospital Encounter [facility] [address] [place] [phone] Cherie Cruz, PT Easton Bowman Jr., DO Knee Pain Discharge Disposition: Home or Self Care (Routine Discharge) 06/07/2024 Travel 06/06/2024 8:29 AM CDT - 06/06/2024 11:59 PM CDT Hospital Encounter [facility] [address] [place] [address] Easton Bowman Jr., Juainta Braun, ASSEMBLER GARMENT FORM Jnt Pain/Knee Discharge Disposition: Home or Self Care (Routine Discharge) 06/06/2024 Travel 06/04/2024 8:27 AM CDT - 06/04/2024 11:59 PM CDT Hospital Encounter [facility] [address] [place] [address] Easton Bowman Jr., Juanita Braun, ASSEMBLER GARMENT FORM Jnt Pain/Knee Discharge Disposition: Home or Self Care (Routine Discharge) 06/04/2024 Travel 06/01/2024 9:30 AM CDT - 06/01/2024 11:59 PM CDT Hospital Encounter [facility] [address] [place] [phone] Easton Bowman Jr., Gloria Calabrese, ASSEMBLER GARMENT FORM Jnt Pain/Knee Discharge Disposition: Home or Self Care (Routine Discharge) 06/01/2024 Travel 05/30/2024 9:45 AM CDT - 05/30/2024 11:59 PM CDT Hospital Encounter [facility] [address] [place] [phone] Easton Bowman Jr., Juanita Braun, ASSEMBLER GARMENT FORM Jnt Pain/Knee Discharge Disposition: Home or Self Care (Routine Discharge) 05/29/2024 1:02 PM CDT - 05/29/2024 1:30 PM CDT [facility] [address] [place] [address] [place] [address] João Hernandez MD EGD WITH DILATION 05/29/2024 12:33 PM CDT Anesthesia Event [facility] [address] [place] [address] [place] [address] Tan Buitrago, WARP HAND 05/29/2024 11:31 AM CDT - 05/29/2024 1:24 PM CDT Hospital Encounter [facility] [address] [place] [address] [place] [address] Jooã Hernandez MD Discharge Disposition: Home or Self Care (Routine Discharge) 05/29/2024 Travel 05/28/2024 8:27 AM CDT - 05/28/2024 11:59 PM CDT Hospital Encounter [facility] [address] [place] [address] Easton Bowman Jr., Juanita Braun, ASSEMBLER GARMENT FORM Jnt Pain/Knee Discharge Disposition: Home or Self Care (Routine Discharge) 05/28/2024 Travel 05/25/2024 7:54 AM CDT - 05/25/2024 11:59 PM CDT Hospital Encounter [facility] [address] [place] [phone] Julian Del Cid, PT Easton Bowman Jr., DO Jnt Pain/Knee Discharge Disposition: Home or Self Care (Routine Discharge) 05/25/2024 Travel 05/23/2024 7:41 AM CDT - 05/23/2024 11:59 PM CDT Hospital Encounter [facility] [address] [place] [address] Cherie Cruz, PT Easton Bowman Jr., Juanita Braun, ASSEMBLER GARMENT FORM Jnt Pain/Knee Discharge Disposition: Home or Self Care (Routine Discharge) 05/22/2024 1:45 PM CDT Office Visit [address] [address] Cem Redman, REAGENT TENDER-BC Postop Followup (DOS: 04/30/2024 - Open Lysis of Adhesions RIGHT Knee with Liner Exchange); Knee Pain (RIGHT - DOI: 05/17/2024) 05/22/2024 1:39 PM CDT - 05/22/2024 11:59 PM CDT Hospital Encounter [facility] [address] [place] [phone] Cem Redman, REAGENT TENDER-BC Discharge Disposition: Home or Self Care (Routine Discharge) 05/22/2024 Travel 05/22/2024 Orders Only [address] [address] Cem Redman, REAGENT TENDER-BC 05/21/2024 7:46 AM CDT - 05/21/2024 11:59 PM CDT Hospital Encounter [facility] [address] [place] [phone] Cherie Cruz, PT Easton Bowman Jr., Gloria Calabrese, ASSEMBLER GARMENT FORM Jnt Pain/Knee Discharge Disposition: Home or Self Care (Routine Discharge) 05/21/2024 Travel 05/17/2024 8:22 AM CDT - 05/17/2024 11:59 PM CDT Hospital Encounter [facility] [address] [place] [address] Easton Bowman Jr., Juanita Braun, ASSEMBLER GARMENT FORM Jnt Pain/Knee Discharge Disposition: Home or Self Care (Routine Discharge) 05/16/2024 8:29 AM CDT - 05/16/2024 11:59 PM CDT [facility] [address] [place] [address] Cherie Cruz, PT Easton Bowman Jr., DO Knee Pain Discharge Disposition: Home or Self Care (Routine Discharge) 05/16/2024 Travel 05/14/2024 9:00 AM CDT Office Visit [address] [address] Cem Redman, REAGENT TENDER-BC Postop Followup (DOS: 04/30/2024 - Open Lysis of Adhesions RIGHT Knee with Liner Exchange) 05/14/2024 8:59 AM CDT - 05/14/2024 11:59 PM CDT Hospital Encounter [facility] [address] [place] [phone] Cem Redman, REAGENT TENDER-BC Discharge Disposition: Home or Self Care (Routine Discharge) 05/14/2024 8:00 AM CDT - 05/14/2024 8:58 AM [place] [address] Cherie Cruz, PT Easton Bowman Jr., Juanita Braun, ASSEMBLER GARMENT FORM Jnt Pain/Knee Discharge Disposition: Home or Self Care (Routine Discharge) 05/14/2024 Travel 05/11/2024 8:43 AM CDT - 05/11/2024 11:59 PM CDT [facility] [address] [place] [phone] Cherie Cruz, Juanita Lindsay, ASSEMBLER GARMENT FORM Jnt Pain/Knee Discharge Disposition: Home or Self Care (Routine Discharge) 05/10/2024 10:43 AM CDT - 05/10/2024 11:59 PM CDT Hospital Encounter [facility] [address] [place] [address] Cherie Cruz, PT Juanita Farrar, ASSEMBLER GARMENT FORM Jnt Pain/Knee Discharge Disposition: Home or Self Care (Routine Discharge) 05/10/2024 Travel 05/09/2024 8:43 AM CDT - 05/09/2024 11:59 PM CDT Hospital Encounter [facility] [address] [place] [address] Cherie Cruz, PT Juanita Farrar, ASSEMBLER GARMENT FORM Jnt Pain/Knee Discharge Disposition: Home or Self Care (Routine Discharge) 05/09/2024 Travel 05/08/2024 8:30 AM CDT - 05/08/2024 11:59 PM CDT [facility] [address] [place] [address] Cherie Cruz, PT Juanita Farrar, ASSEMBLER GARMENT FORM Jnt Pain/Knee Discharge Disposition: Home or Self Care (Routine Discharge) 05/07/2024 8:45 AM CDT - 05/07/2024 11:59 PM CDT [facility] [address] [place] [phone] Cherie Cruz, PT Gloria Duarte, ASSEMBLER GARMENT FORM Jnt Pain/Knee Discharge Disposition: Home or Self Care (Routine Discharge) 05/07/2024 Travel 05/07/2024 Telephone [facility] [address] [place] [address], [address] [place] [address] Cem Redman, REAGENT TENDER-BC Medication Request 05/04/2024 9:04 AM ARABIC TEACHER - 05/04/2024 11:59 PM ARABIC TEACHER [facility] [address] [place] [phone] Cherie Cruz, PT Juanita Farrar, ASSEMBLER GARMENT FORM Jnt Pain/Knee Discharge Disposition: Home or Self Care (Routine Discharge) 05/03/2024 10:39 AM ARABIC TEACHER - 05/03/2024 11:59 PM ARABIC TEACHER Hospital Encounter [facility] [address] [place] [address] Cherie Cruz, PT Julian Del Cid, PT Jnt Pain/Knee Discharge Disposition: Home or Self Care (Routine Discharge) 05/03/2024 Travel 05/02/2024 8:57 AM ARABIC TEACHER - 05/02/2024 11:59 PM ARABIC TEACHER Hospital Encounter [facility] [address] [place] [address] Cherie Cruz, PT Knee Pain Discharge Disposition: Home or Self Care (Routine Discharge) 05/02/[address] [place] [address] Lizzeth Escobar PA Medication (Request for something stronger ) 05/01/2024 9:11 AM ARABIC TEACHER - 05/01/2024 11:59 PM ARABIC TEACHER Hospital Encounter [facility] [address] [place] [address] Cherie Cruz, PT Easton Bowman Jr., DO Knee Pain Discharge Disposition: Home or Self Care (Routine Discharge) 05/01/2024 Travel 04/30/2024 7:45 AM ARABIC TEACHER - 04/30/2024 9:29 AM ARABIC TEACHER [place] [address] Easton Bowman Jr., DO Open Lysis of Adhesions RIGHT Knee with Liner Exchange 04/30/2024 7:36 AM ARABIC TEACHER Anesthesia [place] [address] Abby Chambers, MARJORIE 04/30/2024 5:52 AM ARABIC TEACHER - 04/30/2024 12:48 PM ARABIC TEACHER Hospital Encounter [facility] [place] [address] Easton Bowman Jr., DO Discharge Disposition: Home or Self Care (Routine Discharge) 04/30/2024 Orders Only [address] [address] Cem Redman, REAGENT TENDER-BC 04/30/2024 Travel 04/24/2024 Orders Only [address] [address] Cem Redman, [facility]- 04/19/[address] [address] Easton Bowman Jr., DO Prior Authorization 04/17/2024 Travel 04/16/2024 11:30 AM ARABIC TEACHER - 04/16/2024 11:59 PM ARABIC TEACHER Hospital Encounter [facility] [address] [place] [address] Courtney Rojas, EMELINA Discharge Disposition: Home or Self Care (Routine Discharge) 04/16/2024 10:14 AM ARABIC TEACHER - 04/16/2024 11:29 AM ARABIC TEACHER Hospital Encounter [facility] [address] [place] [address] Easton Bomwan Jr., DO Discharge Disposition: Home or Self Care (Routine Discharge) 04/16/2024 Orders Only [place] [address] [facility] [address] Courtney Rojas NP 04/16/2024 Travel 04/10/2024 Prep for Procedure [address] [address] Easton Bowman Jr., 04/10/2024 Orders Only [address] [address] Easton Bowman Jr., DO 04/09/2024 1:15 PM ARABIC TEACHER Office Visit [address] [address] Easton Bowman Jr., DO Postop Followup (DOS:03/19/2024-TAMIR PULATION UNDER ANESTHESIA RIGHT KNEE) and Follow Up (DOS:01/16/2024 Full Revision RIGHT total knee arthroplasty)) 04/09/2024 Travel 04/06/2024 8:30 AM ARABIC TEACHER - 04/06/2024 11:59 PM ARABIC TEACHER Hospital Encounter [facility] [address] [place] [phone] Vince Goodwin, PT Easton Bowman Jr., DO Total Knee Arth Discharge Disposition: Home or Self Care (Routine Discharge) 04/06/2024 Travel 04/04/2024 8:30 AM ARABIC TEACHER - 04/04/2024 11:59 PM ARABIC TEACHER [facility] [address] [place] [phone] Vince Goodwin, PT Easton Bowman Jr., DO Total Knee Arth Discharge Disposition: Home or Self Care (Routine Discharge) 04/04/2024 Travel 04/02/2024 8:30 AM ARABIC TEACHER - 04/02/2024 11:59 PM ARABIC TEACHER Hospital [facility] [address] [place] [phone] Vince Goodwin, PT Easton Bowman Jr., Juanita Braun, ASSEMBLER GARMENT FORM Total Knee Arth Discharge Disposition: Home or Self Care (Routine Discharge) 04/02/2024 Travel 03/30/2024 8:23 AM ARABIC TEACHER - 03/30/2024 11:59 PM ARABIC TEACHER Hospital [facility] [address] [place] [phone] Vince Goodwin, PT Total Knee Arth Discharge Disposition: Home or Self Care (Routine Discharge) 03/29/2024 11:35 AM ARABIC TEACHER - 03/29/2024 11:59 PM ARABIC TEACHER Hospital [facility] [address] [place] [address] Easton Bowman Jr., Juanita Braun, ASSEMBLER GARMENT FORM Total Knee Arth Discharge Disposition: Home or Self Care (Routine Discharge) 03/29/2024 Travel 03/28/2024 9:10 AM ARABIC TEACHER - 03/28/2024 11:59 PM ARABIC TEACHER Hospital Encounter [facility] [address] [place] [address] Easton Bowman Jr., Claudio Pompa, ASSEMBLER GARMENT FORM Total Knee Arth Discharge Disposition: Home or Self Care (Routine Discharge) 03/27/2024 11:02 AM ARABIC TEACHER - 03/27/2024 11:59 PM ARABIC TEACHER Hospital Encounter [facility] [address] [place] [address] Easton Bowman Jr., Juanita Braun, DEDE Total Knee Arth Discharge Disposition: Home or Self Care (Routine Discharge) 03/27/2024 Travel 03/26/2024 9:15 AM ARABIC TEACHER Office Visit [address] [address] Cem Redman, REAGENT TENDER-BC Postop Followup (DOS:03/19/2024-TAMIR PULATION UNDER ANESTHESIA RIGHT KNEE); Follow Up (DOS:01/16/2024 Full Revision RIGHT total knee arthroplasty) 03/26/2024 7:56 AM ARABIC TEACHER - 03/26/2024 11:59 PM ARABIC TEACHER Hospital [facility] [address] [place] [address] Easton Bowman Jr., Juanita Braun, DEDE Total Knee Arth Discharge Disposition: Home or Self Care (Routine Discharge) 03/26/[address] [address] Cem Redman, REAGENT TENDER-BC Question (Dynamic Extension Brace question) 03/26/2024 Travel 03/23/2024 9:56 AM ARABIC TEACHER - 03/23/2024 11:59 PM ARABIC TEACHER Hospital [facility] [address] [place] [address] Cherie Cruz, PT Easton Bowman Jr., Gloria Calabrese, ASSEMBLER GARMENT FORM Total Knee Arth Discharge Disposition: Home or Self Care (Routine Discharge) 03/22/2024 3:41 PM ARABIC TEACHER - 03/22/2024 11:59 PM ARABIC TEACHER Hospital [facility] [address] [place] [phone] Easton Bowman Jr., Juanita Braun, DEDE Total Knee Arth Discharge Disposition: Home or Self Care (Routine Discharge) 03/22/2024 Travel 03/21/2024 8:51 AM ARABIC TEACHER - 03/21/2024 11:59 PM ARABIC TEACHER Hospital Encounter [facility] [address] [place] [address] Cherie Cruz, PT Easton Bowman Jr., Claudio Pompa, ASSEMBLER GARMENT FORM Total Knee Arth Discharge Disposition: Home or Self Care (Routine Discharge) 03/20/2024 10:45 AM ARABIC TEACHER - 03/20/2024 11:59 PM ARABIC TEACHER Hospital Encounter [facility] [address] [place] [phone] Vince Goodwin, PT Total Knee Arth Discharge Disposition: Home or Self Care (Routine Discharge) 03/20/2024 Travel 03/20/[address] [address] Lizzeth Escobar PA Therapy Plans 03/19/2024 7:40 AM ARABIC TEACHER - 03/19/2024 8:10 AM ARABIC TEACHER [facility] [address] [place] [address] [place] [address] Easton Bowman Jr., DO MANIPULATION UNDER ANESTHESIA RIGHT KNEE 03/19/2024 7:31 AM ARABIC TEACHER Anesthesia Event [facility] [address] [place] [address] [place] [address] Tan Buitrago, WARP HAND 03/19/2024 5:58 AM ARABIC TEACHER - 03/19/2024 8:38 AM ARABIC TEACHER Hospital Encounter [address] [place] [address] Easton Bowman Jr., Discharge Disposition: Home or Self Care (Routine Discharge) 03/19/2024 Travel 03/14/2024 9:15 AM ARABIC TEACHER - 03/14/2024 11:59 PM ARABIC TEACHER Hospital Encounter [facility] [address] [place] [phone] Cherie Cruz, PT Easton Bowman Jr., Claudio Pompa, ASSEMBLER GARMENT FORM Total Knee Arth Discharge Disposition: Home or Self Care (Routine Discharge) 03/13/2024 Travel 03/12/2024 2:15 PM ARABIC TEACHER Office Visit [address] [address] Easton Bowman Jr., DO Postop Followup (DOS:01/16/2024 - Full Revision RIGHT total knee arthroplasty) 03/12/2024 Prep for Procedure [facility] [address], [place] [address] Easton Bowman Jr., DO 03/12/2024 Travel from Last 3 Months Immunizations Immunization Administration Dates Next Due Fluarix 11/08/2016 Fluzone 6 Months+ Quad (0.5 mL Prefilled Syringe) 11/15/2019 Influenza (Generic) 11/08/2016 Influenza Adult (Generic) 03/02/2021,11/15/2019, 12/07/2018 Pneumococcal (Pneumovax 23) 11/16/2017 Shingrix 12/07/2018 Family History Medical History Relation Comments Heart Disease Father COPD Mother Relation Status Comments Father Alive Mother Alive Social History Tobacco Use Types Packs/Day Years Used Date Smoking Tobacco: Former Cigarettes 1 35 0 08/1986 - 08/2021 Smokeless Tobacco: Never Tobacco Cessation:Counseling Given: Not Answered Alcohol Use Standard Drinks/Week Comments No 0 (1 standard drink = 0.6 oz pur e alcohol) B1300 Health Literacy Answer Date Recor ded How often do you need to hav e someone help you when you read instructions, pamphlets, or other written material from your doctor or pharmacy? Never 01/16/2024 [facility] Utilities Answer Date Recorded In the past 12 months has e [employer], gas, oil, or water [employer] threatened to shut off services in your home? No 01/16/2024 Humiliation, Afraid, Rape, and Kick questionnair e Answer Date Recorded Within the last year, have y ou been afraid of your partner or ex-partner? No 01/16/2024 Within the last year, have y ou been humiliated or emotionally abused in other ways by your partner or ex-partner? No Within the last year, have y ou been kicked, hit, slapped, or otherwise physically hurt by your partner or ex-partner? No 01/16/2024 Within the last year, have y ou been raped or forced to have any kind of sexual activity by your partner or ex-partner? No 01/16/2024 AUDIT-C Answer Date Recorded Q1: How often do you have a drink containing alcohol? Never 01/16/2024 Q2: How many drinks containi ng alcohol do you have on a typical day when you are drinking? Patient does not drink Q3: How often do you have si x or more drinks on one occasion? Never 01/16/2024 Overall Financial Resource Strain (CARDIA) Answe r Date Recorded How hard is it for you to pa y for the very basics like food, housing, medical care, and heating? Not hard at all 01/16/2024 PHQ-2 Answer Date Recorded Patient Health Questionnaire-2 Score 0 01/16/2024 [facility] - Occupational Stress Questionnaire Answer Date Recorded Do you feel stress - tense, restless, nervous, or anxious, or unable to sleep at night because your mind is troubled all the time - these days? Not at all 01/16/2024 Hunger Vital Sign Answer Date Recorded Within the past 12 months, y ou worried that your food would run out before you got the money to buy more. Never true 01/16/20 24 Within the past 12 months, t he food you bought just didn't last and you didn't have money to get more. Never true 01/16/2024 PRAPARE - Transportation Answer Date Re corded In the past 12 months, has l ack of transportation kept you from medical appointments or from getting medications? No 12/29 In the past 12 months, has l ack of transportation kept you from meetings, work, or from getting things needed for daily living? No 01/16/2024 Housing Stability Vital Sign Answer Adarsh e Recorded In the last 12 months, was t here a time when you were not able to pay the mortgage or rent on time? No 03/22/2022 In the last 12 months, how many places have you lived? 1 03/22/2022 In the last 12 months, was t here a time when you did not have a steady place to sleep or slept in a fci (including now)? No 03/22/2022 Housing Stability Vital Sign Answer Adarsh e Recorded In the last 12 months, was t here a time when you were not able to pay the mortgage or rent on time? No 01/16/2024 In the past 12 months, how m any times have you moved where you were living? 0 01/16/2024 At any time in the past 12 m [facility], were you homeless or living in a fci (including now)? No 01/16/2024 Comments No Sex and Gender Information Value Date Recorded Sex Assigned at Female 03/19/2024 5:58 AM ARABIC TEACHER Legal Sex Female 6:59 PM CDT Gender Identity Not on file Sexual Orientation Not on file Last Filed Vital Signs Vital Sign Reading Time Taken Comments Blood Pressure 108/43 05/29/2024 1:15 PM CDT Pulse 64 05/29/2024 1:15 PM CDT Temperature 36.3 C (97.3 F) 05/29/2024 1:15 PM CDT Respiratory Rate 16 05/29/2024 1:15 PM CDT Oxygen Saturation 98% 05/29/2024 1:15 PM CDT Inhaled Oxygen Concentration - - Weight 81.6 kg (180 lb) 05/28/2024 10:55 AM CDT Height 154.9 cm (5' 1 ) 05/28/2024 10:55 AM CDT Body Mass Index 34.01 05/28/2024 10:55 AM CDT Plan of Treatment Upcoming Encounters Date Type Department Care Team (Late st Contact Info) Description 06/11/2024 9:45 AM CDT Office Visit [place] [phone] Easton Bowman Jr., DO [address] [place] [address] Health Maintenance Due Date Last Done Comments ASCVD Statin 1965 Colorectal Cancer Screening Colonoscopy (10 Years) 1965 Annual Physical 11/12/1970 DTaP, Tdap and Td Vaccines ( 1 - Tdap) 11/12/1986 Hepatitis B Vaccines (1 of 3 - 19+ 3-dose series) 11/12/1986 Pneumococcal Vaccine: Pediatrics (0 to 5 Years) and At-Risk Patients (6 to 49 Years) (2 of 2 - PCV) 11/16/2018 11/16/2017 Zoster Vaccines (2 of 2) 02/01/2019 12/07/2018 ASCVD LDL 01/25/2023 01/25/2022, 02/16/2021 COVID-19 Vaccine (2023-2 5 season) 2023 Lung Cancer Screening 06/13/2024 06/14/2023 , 06/14/2022, 09/05/2018 Mammogram Screening 11/15/2025 11/16/2023, 02/12/2022 Hepatitis C Completed 03/12/2022, 05/23/2017 Meningococcal B Vaccine Aged Out No l onger eligible based on patient's age to complete this topic Meningococcal Vaccine Aged Out No mehrdad ministerio eligible based on patient's age to complete this topic RSV Immunizations Under 20 Months Aged Out No longer eligible b ased on patient's age to complete this topic Goals Goal Patient Goal Type Associated Problems Recent Progress Patient-Stated? Author Health - patient able to perform ADLs independently Lifestyle No Tiffanie Haines RN Patient will return to prior living situation and remain independent in ADLs upon discharge from hospital Lifestyle No Tiffanie Haines RN Medical Devices Implanted Type Area Inoculator Device Identifier Shelf Expiration Date Model / Serial / Lot Cement Simplex Hv W/Gentamicin - [id number] Implanted:Qty: 1 on 05/16/2023 by Hudson Hartmann MD at [facility] Cement Implant Right: Knee [employer] [id number] 06/27/2024 6195-1-001 / / [id number] Cement Simplex Hv W/Gentamicin - [id number] Implanted:Qty: 1 on 05/16/2023 by Hudson Hartmann MD at [facility] Cement Implant Right: Knee [employer] [id number] 06/27/2024 6195-1-001 / / [id number] Cement Bone 20/10 Fast Set Depuy - [id number] Implanted:Qty: 1 on 01/16/2024 by Easton Bowman Jr., DO at [facility] Cement Implant Right: Knee [employer] [id number] 03/30/2026 [id number] / / [id number] Cement Bone Refobacin - [id number] Implanted:Qty: 1 on 01/16/2024 by Easton Bowman Jr., DO at [facility] Cement Implant Right: Knee [employer] [id number] 01/27/2026 [id number] / / [id number] Cement Bone Refobacin - [id number] Implanted:Qty: 1 on 01/16/2024 by Easton Bowman Jr., DO at [facility] Cement Implant Right: Knee [employer] [id number] 01/27/2026 [id number] / / [id number] Baseplate Tibial Attune 3 Knee Cement Rotate Platform - [id number] Implanted:Qty: 1 on 05/16/2023 by Hudson Hartmann MD at [facility] Knee Components Right: Knee [employer] [id number] 12/28/2032 [id number] / / [id number] Stimulator Lead-10/19/2021 Implanted:Qty: 1 on 10/19/2021 by Pankaj Navarro MD Lead Implant Spine Lumbar [employer] [id number] / [id number] / Component Ptlr 32mm Medialize Dome Attune - [id number] Implanted:Qty: 1 on 05/16/2023 by Hudson Hartmann MD at [facility] Patella Right: Knee [employer] [id number] 02/28/2028 [id number] / / [id number] System Tape Gynecare Vaginal Tension Free - [id number] Implanted:Qty: 1 on 06/08/2021 by Pankaj Navarro MD at [facility] Sling [employer] 08/27/2021 [id number] / / [id number] Interatim Percutaneous Extension Implanted:Qty: 1 on 10/05/2021 by Pankaj Navarro MD at [facility] N/A: Back [id number] 11/06/2022 [id number] / / [id number] Description:Verified by Lead Neurostimulator 28cm Interstim Sterile Latex Free - [id number] Implanted:Qty: 1 on 10/05/2021 by Pankaj Navarro MD at [facility] N/A: Back [employer] n/a 03/19/2023 [id number] / [id number] / [id number] Description:Verified by MD Silva Envelope Implanted:Qty: 1 on 10/12/2021 by Pankaj Navarro MD at [facility] N/A: Back [id number] 06/19/2022 [id number] / / [id number] Description:Verified by Interstem X Implanted:Qty: 1 on 10/12/2021 by Pankaj Navarro MD at [facility] N/A: Back [id number] 01/11/2023 [id number] / [id number] / [id number] Description:Verified by MD Dumont timulator should be full body eligible with documented lead, 3T or 1.5 T eligible, Remote must be fully charged prior to MRI, Stimulation needs to be off. Follow most recent MRI scan conditions listed in technical manual Medtronic Tyrx Neuro Absorbable Antibacterial Envelope- Medium Tyrosine Polyarylate Coated, Multifilament Absorbable Mesh Implanted:Qty: 1 on 04/12/2022 by Pankaj Navarro MD at [facility] Right: Back [employer] 10/14/2022 [id number] / / [id number] Femoral Cruciate Retaining Narrow Implanted:Qty: 1 on 05/16/2023 by Hudson Hartmann MD at [facility] Right: Knee [id number] 08/27/2029 3 / / [id number] Attune Tibial Insert Rotating Platform Implanted:Qty: 1 on 05/16/2023 by Hudson Hartmann MD at [facility] Right: Knee [id number] 02/28/2024 7 / 7 / [id number] Attune Tibial Insert Rotating Platform Cruciate Retaining Implanted:Qty: 1 on 10/10/2023 by Easton Bowman Jr., DO at [facility] Right: Knee [employer] [id number] 06/27/2026 0 / / [id number] Persona Revision Trabecular Metal Tibial Central Cone Implanted:Qty: 1 on 01/16/2024 by Easton Bowman Jr., DO at [facility] Right: Knee [employer] [id number] 08/26/2033 42-5450-00 5-08 / / [id number] Persona Vivacit-E Implanted:Qty: 1 on 01/16/2024 by Easton Bowman Jr. DO at [facility] Right: Knee [employer] [id number] 02/28/2024 42-5226-00 4-16 / / [id number] Persona Revision Stem Extension Implanted:Qty: 2 on 01/16/2024 by Easton Bowman Jr., DO at [facility] Right: Knee [employer] [id number] 11/15/2033 42-5600-07 5-14 / [id number] Persona Revision Tibia Fixed Cemented Implanted:Qty: 1 on 01/16/2024 by Easton Bowman Jr., DO at [facility] Right: Knee [employer] [id number] 06/18/2032 42-5420-06 7-02 / / [id number] Persona Revision Femur Cemented Plus Implanted:Qty: 1 on 01/16/2024 by Easton Bowman Jr., DO at [facility] Right: Knee [employer] [id number] 08/27/2029 42-5046-05 8-12 / / [id number] 3.5x48mm Hex Headed Screw Implanted:Qty: 1 on 01/16/2024 by Easton Bowman Jr., DO at [facility] Right: Knee 00-5901-03 5-48 / / [id number] Persona Vivacit-E Implanted:Qty: 1 on 04/30/2024 by Easton Bowman Jr., DO at [facility] Right: Knee [id number] 08/25/2025 42-5226-00 06-11 42-5226-00 06-11 [id number] Explanted Type Area Inoculator Device Identifier Shelf Expiration Date Model / Serial / Lot Headless Trocar Drill Pin Explanted:Qty: 1 on 01/16/2024 by Easton Bowman Jr., at [facility] Right: Knee [employer] 08/22/2033 00-5901-020 -00 / / [id number] Procedures Procedure Name Priority Date/Time Associated Diagnosis Comments EGD WITH DILAT STRICTURE 05/29/2024 12:29 PM CDT Dysphagia Case Notes WILL UPDATE H&P THAT DAY ENDOSCOPY (SCAN ORDER) 05/29/2024 6:41 AM CDT XR KNEE RT MIN 4V Routine 05/22/2024 1:4 4 PM CDT Status post revision of total replacement of right knee XR KNEE RT MIN 4V Routine 05/14/2024 9:0 7 AM CDT Orthopedic aftercare ND AN PERIPHERAL BLOCK CONTINUOUS Routine 04/30/2024 8:02 AM ARABIC TEACHER ND AN PERIPHERAL BLOCK SINGLE-SHOT Routine 04/30/2024 7:52 AM ARABIC TEACHER ARTHROPLASTY KNEE TOTAL 04/30/2024 7:31 AM ARABIC TEACHER Arthrofibrosis of knee joint, right History of revision of total replacement of right knee joint MRSA SCREENING Routine 04/16/2024 10:29 AM ARABIC TEACHER Pre-op testing Arthrofibrosis of knee joint, right History of revision of total replacement of right knee joint Chronic pain THYROXINE, FREE (FT4) Routine 04/16/2024 10:29 AM ARABIC TEACHER Acquired hypothyroidism THYROID STIM HORMONE TSH Routine 04/16/2024 10:29 AM ARABIC TEACHER Acquired hypothyroidism PROTHROMBIN TIME, VENOUS Routine 04/16/2024 10:29 AM ARABIC TEACHER Pre-op testing Arthrofibrosis of knee joint, right History of revision of total replacement of right knee joint Chronic pain Pain in other specified joint COMPREHENSIVE METABOLIC PANEL Routine 04/16/2024 10:29 AM ARABIC TEACHER Pre-op testing Arthrofibrosis of knee joint, right History of revision of total replacement of right knee joint Chronic pain CBC W/DIFF AUTOMATED Routine 04/16/2024 10:29 AM ARABIC TEACHER Pre-op testing Arthrofibrosis of knee joint, right History of revision of total replacement of right knee joint Chronic pain MANIPULATION KNEE 03/19/2024 7:2 1 AM ARABIC TEACHER Arthrofibrosis of knee joint, right Status post revision of total replacement of right knee POCT GLUCOSE - MOBLEY DOCKED DEVICE Routine 03/19/2024 6:36 AM ARABIC TEACHER MG SCREENING W ROMELIA BLANCA DIGI Routine 11/16/2023 8:26 AM CDT Visit for screening mammogram CT LUNG SCREENING Routine 06/14/2023 8:1 4 AM CDT Personal history of nicotine dependence HEPATITIS PANEL,ACUTE Routine 03/12/2022 10:22 AM ARABIC TEACHER Morbid obesity BMI 45.0-49.9, adult Osteoarthritis of multiple joints, unspecified osteoarthritis type Obstructive sleep apnea Osteoporosis LIPID PANEL Routine 01/25/2022 9:27 AM ARABIC TEACHER Morbid obesity Abnormal finding of blood chemistry, unspecified from Last 3 Months or Most Recently Relevant to Health Maintenance Results * ENDOSCOPY (SCAN ORDER) (05/29/2024 6:41 AM CDT) João Hernandez MD SCANNING Final Result * XR KNEE RT MIN 4V (05/22/2024 1:44 PM CDT) Only the most recent of2 resultswithin the time period is included. Anatomical Region Laterality Modality Knee Radiographic Priscilla ging 05/23/2024 9:31 AM CDT Impressions 05/23/2024 9:32 AM CDT IMPRESSION: Stable exam. No acute findings. Ordered By: CEM REDMAN Interpreted By: Marquis Hare MD, 05/23/2024 9:31 AM Narrative 05/23/2024 9:32 AM CDT [address] [place] [address] Examination: Right knee. Exam time: 1240 hours. Clinical history: Pain after a fall. Comparison: 05/14/2024. Technique: Bilateral weightbearing PA and sunrise and weightbearing AP and lateral views on the right. Findings: No fracture, dislocation or other acute bony abnormality is identified. Arthroplasty on the right remains in place with the components in satisfactory alignment and position. No other significant bone or joint abnormality is noted. The soft tissues are unremarkable. Procedure Note Marquis Hare MD - 05/23/[address] [place] [address] Examination: Right knee. Exam time: 1240 hours. Clinical history: Pain after a fall. Comparison: 05/14/2024. Technique: Bilateral weightbearing PA and sunrise and weightbearing AP andlateral views on the right. Findings: No fracture, dislocation or other acute bony abnormality isidentified. Arthroplasty on the right remains in place with the componentsin satisfactory alignment and position. No other significant bone or jointabnormality is noted. The soft tissues are unremarkable. IMPRESSION: Stable exam. No acute findings. Ordered By: CEM REDMAN Interpreted By: Marquis Hare MD, 05/23/2024 9:31 AM Cem Redman REAGENT TENDER-BC GENERAL IMAGING Final Resu lt * ND AN PERIPHERAL BLOCK CONTINUOUS (04/30/2024 8:02 AM ARABIC TEACHER) Only the most recent of2 resultswithin the time period is included. Narrative Marquis Kam CRNA - 04/30/2024 8:02 AM ARABIC TEACHER Marquis Kam CRNA 04/30/2024 8:04 AM Peripheral Block - ACB with cath placement Performed by: Marquis Kam CRNA Authorized by: Marquis Kam CRNA Procedure Start: 04/30/2024 7:21 AM Procedure Stop: 04/30/2024 7:27 AM Patient Location: Pre-op Reason for Block: at surgeon's request and post-op pain management patient identified, IV checked, site marked, risks and benefits discussed, consent, monitors and equipment checked, pre-op evaluation and timeout performed Patient Position: Supine Monitoring: Blood pressure, continuous pulse ox, ECG/EKG and heart rate Prep: ChloraPrep Draping: Sterile technique maintained Block Type: Femoral at Adductor Canal Laterality: Right Injection Technique: Catheter Technique: ultrasound guided Needle type: Medline Echogenic. Needle Gauge: 22 G (24G) Needle Length: 3 1/8 in (7CM) Needle Localization: Anatomical landmarks and ultrasound guidance Needle Insertion Depth: 4 Test Dose: Negative Local Volume: 20 Insertion Attempts: 1 Injection Assessment/ Attestation: Incremental injection, local visualized surrounding nerve on ultrasound, negative aspiration for heme, no apparent complications and ultrasound image saved Heart Rate Change: No Risks explained: difficult placement, may be ineffective, bleeding, infection, nerve damage. Benefits explained to patient: may lower sedation and/or general anesthetic dose, possibly less pain after procedure.Timeout performed including patients name, date, and laterality. Patient participated in the timeout. Antiseptic prep. Sterile probe cover applied. ID of sartorius muscle and femoral artery. Needle placed under ultrasound guidance. Injected local incrementally with multiple negative aspirations. Cath placed and secured with steri strips and tagaderm. Patient tolerated procedure well. Marquis Kam WARP HAND ND ANESTHESIA Final Res ult * MRSA SCREENING (04/16/2024 10:29 AM ARABIC TEACHER) SOURCE RESPIRATORY, NOSE 04/16/2024 10:24 AM ARABIC TEACHER [facility] MRSA BY PCR NASAL METHICILLIN RESISTANT STAPH AUREUS NOT DETECTED METHICILLIN RESISTANT STAPH AUREUS NOT DETECTED 04/17/2024 10:47 AM ARABIC TEACHER [facility] NASAL STRUCTURE / Unknown 04/16/2024 10:29 AM ARABIC TEACHER Easton Bowman Jr., DO MICROBIOLOGY - GENERAL O RDERABLES Final Result [facility] [address] [place] [id number], [id number] [facility] [address] [place] [address], * (ABNORMAL) PROTIME/INR, VENOUS (04/16/2024 10:29 AM ARABIC TEACHER) PROTIME 13.2(H) 9.4 - 12.5 SEC 04/16/2024 10:41 AM [facility] INR 1.2(H) 0.8 - 1.0 04/16/2024 10:41 AM [facility] 04/16/2024 10:2 9 AM [facility] us Easton Bowman Jr., DO LABORATORY Final Re sult [facility] [address] [place] [address], * (ABNORMAL) COMPREHENSIVE METABOLIC PANEL (04/16/2024 10:29 AM ARABIC TEACHER) SODIUM S/P/B 143 136 - 145 MMOL/L 04/16/2024 10:50 AM [facility] POTASSIUM S/P/B 4.9 3.5 - 5.1 MMOL/L 04/16/2024 10:50 AM [facility] CHLORIDE S/P/B 106 98 - 107 MMOL/L 04/16/2024 10:50 AM [facility] CO2 29.3 21.0 - 32.0 MMOL/L 04/16/2024 10:50 AM [facility] GLUCOSE 104(H) 70 - 99 MG/DL 04/16/2024 10:50 AM [facility] Comment: FASTING GLUCOSE 100 TO 125 MG/DL IS CONSISTENT WITH IMPAIRED FASTING GLUCOSE. FASTING GLUCOSE >125 MG/DL IS CONSISTENT WITH DIABETES. RANDOM GLUCOSE >200 MG/DL WITH HYPERGLYCEMIC SYMPTOMS IS CONSISTENT WITH DIABETES. PER ADA GUIDELINES BUN 9 6 - 24 MG/DL 04/16/2024 10:50 AM [facility] CREATININE S/P/B 0.74 0.55 - 1.02 MG/DL 04/16/2024 10:50 AM [facility] CALCIUM S/P/B 8.3(L) 8.4 - 10.5 MG/DL 04/16/2024 10:50 AM [facility] BILIRUBIN TOTAL S/P/B 0.5 0.2 - 1.0 MG/DL 04/16/2024 10:50 AM [facility] Comment: THIS ASSAY IS NOT RECOMMENDED FOR PATIENTS UNDERGOING TREATMENT WITH ELTROMBOPAG DUE TO THE POTENTIAL FOR FALSELY ELEVATED RESULTS. ALKALINE PHOSPHATASE S/P/B 110 46 - 118 U/L 04/16/2024 10:50 AM [facility] AST 14(L) 15 - 37 U/L 04/16/2024 10:50 AM [facility] ALT 33 14 - 59 U/L 04/16/2024 10:50 AM [facility] TOTAL PROTEIN S/P/B 6.5 6.4 - 8.2 G/DL 04/16/2024 10:50 AM [facility] ALBUMIN S/P/B 3.3(L) 3.4 - 5.0 G/DL 04/16/2024 10:50 AM [facility] ANION GAP 7.7 5.0 - 15.0 MMOL/L 04/16/2024 10:50 AM [facility] OSMOLALITY (CALC) 295 MOSM/KG 025 10:50 AM [facility] Comment:REFERENCE RANGE NOT ESTABLISHED GFR ESTIMATE >90 >89 ML/MIN/1. 73 M2 04/16/2024 10:50 AM [facility] GFR NOTES GFR REFERENCE S: 04/16/2024 10:50 AM [facility] Comment: THE ESTIMATED GFR IS CALCULATED USING THE 2020 CKD-EPI EQUATION. THE FOLLOWING CATEGORIES FOR GRADING RENAL FUNCTION ARE RECOMMENDED BY THE INTERNATIONAL SOCIETY OF NEPHROLOGY (KDIGO 2012 CLINICAL PRACTICE GUIDELINE). G1,NORMAL OR HIGH: >89 ml/min/1.73 m2 G2,MILDLY DECREASED: 60-89 ml/min/1.73 m2 G3A,MILDLY TO MODERATELY DECREASED: 45-59 ml/min/1.73 m2 G3B,MODERATELY TO SEVERELY DECREASED: 30-44 ml/min/1.73 m2 G4,SEVERELY DECREASED: 15-29 ml/min/1.73 m2 G5,KIDNEY FAILURE: <15 ml/min/1.73 m2 04/16/2024 10:2 9 AM ARABIC TEACHER Easton Bowman Jr., DO LABORATORY Final Re sult [facility] [address] [place] [address], * (ABNORMAL) CBC W/DIFF AUTOMATED (04/16/2024 10:29 AM ARABIC TEACHER) WBC 5.43 4.00 - 10.80 x10'3/uL 04/16/2024 10:35 AM [facility] RBC 4.15 4.10 - 5.40 x10'6/uL 04/16/2024 10:35 AM [facility] HGB 13.0 12.0 - 16.0 G/DL 04/16/2024 10:35 AM [facility] HCT 40.8 36.0 - 47.0 % 04/16/2024 10:35 AM [facility] MCV 98.3 78.0 - 100.0 FL 04/16/2024 10:35 AM [facility] MCH 31.3(H) 27.0 - 31.0 PG 04/16/2024 10:35 AM [facility] MCHC 31.9(L) 33.0 - 36.0 G/DL 04/16/2024 10:35 AM [facility] RDW 15.0(H) 11.5 - 14.5 % 04/16/2024 10:35 AM [facility] PLT 237 150 - 350 x10'3/uL 04/16/2024 10:35 AM [facility] MPV 9.8 7.4 - 10.4 FL 04/16/2024 10:35 AM [facility] CBC COMMENT NORMAL REFERENCE RANGE NOT ESTABLISHED FOR THE PROPORTIONAL LEUKOCYTE DIFFERENTIAL. 04/16/2024 10:35 AM [facility] NEUTROPHILS % 60.4 % 04/16/2024 10:35 AM [facility] LYMPHOCYTES % 33.7 % 04/16/2024 10:35 AM [facility] MONOCYTES % 4.2 % 04/16/2024 10:35 AM [facility] EOSINOPHILS % 1.3 % 04/16/2024 10:35 AM [facility] BASOPHILS % 0.2 % 04/16/2024 10:35 AM [facility] IMMATURE GRANS % 0.2 % 04/16/19 10:35 AM [facility] NRBC % 0.0 % 04/16/2024 10:35 AM [facility] ABS. NEUTROPHILS 3.28 1.60 - 8.30 x10'3/uL 04/16/2024 10:35 AM [facility] ABS. LYMPHOCYTES 1.83 0.80 - 4.70 x10'3/uL 04/16/2024 10:35 AM [facility] ABS. MONOCYTES 0.23 0.00 - 1.50 x10'3/uL 04/16/2024 10:35 AM [facility] ABS. EOSINOPHILS 0.07 0.00 - 0.40 x10'3/uL 04/16/2024 10:35 AM [facility] ABS. BASOPHILS 0.01 0.00 - 0.20 x10'3/uL 04/16/2024 10:35 AM [facility] ABS. IMMATURE GRANULOCYTES 0.01 0.00 - 0.03 x10'3/uL 04/16/2024 10:35 AM [facility] ABS. NUCLEATED RBC'S 0.00 0.00 - 0.01 x10'3/uL 04/16/2024 10:35 AM [facility] 04/16/2024 10:2 9 AM ARABIC TEACHER us Easton Bowman Jr., DO LABORATORY Final Re sult Performing Organization Address City/[facility]/ZIP Co de Phone Number [facility] [address] [place] [address], * THYROXINE, FREE (FT4) (04/16/2024 10:29 AM ARABIC TEACHER) FREE T4 0.92 0.76 - 1.46 NG/DL 04/16/2024 3:51 PM ARABIC TEACHER [facility] 04/16/2024 10:2 9 AM ARABIC TEACHER Courtney Rojas EDUCATIONAL TECHNOLOGY COORDINATOR LABORATORY Final Resul t Performing Organization Address [facility] de Phone Number [facility] [address] [place] [address], * (ABNORMAL) THYROID STIM HORMONE TSH (04/16/2024 10:29 AM ARABIC TEACHER) TSH 8.476(H) 0.358 - 3.740 uIU/ML 04/16/2024 1:06 PM ARABIC TEACHER [facility] Comment: ASSAY PERFORMED BY CHEMILUMINESCENT IMMUNOASSAY METHODOLOGY USING SIEMENS DIMENSION REAGENT. PATIENT RESULTS DETERMINED BY ASSAYS FROM DIFFERENT MANUFACTURERS AND/OR BY DIFFERENT METHODS MAY NOT BE COMPARABLE. 04/16/2024 10:2 9 AM ARABIC TEACHER us Courtney Rojas EDUCATIONAL TECHNOLOGY COORDINATOR LABORATORY Final Resul t Performing Organization Address City/[facility]/ZIP Co de Phone Number [facility] [address] [place] [id number], [place] [phone] * POCT glucose (03/19/2024 6:36 AM ARABIC TEACHER) GLUCOSE POC 93 70 - 99 MG/DL 03/19/2024 6:42 AM ARABIC TEACHER [facility] 03/19/2024 6:36 AM ARABIC TEACHER us Easton Bowman Jr., DO POCT ORDERABLES - DEVICE Final Result [facility] [address] [place] [id number], * MG SCREENING W ROMELIA BLANCA DIGI (11/16/2023 8:26 AM CDT) Anatomical Region Laterality Modality Breast Bilateral Mammography 11/16/2023 10:4 8 AM CDT Impressions 11/16/2023 10:49 AM CDT IMPRESSION: No suspicious change since the previous exams. Recommendation: 1: Routine Screening Bilateral in 1 Year Assessment: ACR BI-RADS 2 - BENIGN FINDING(S) Ordered By: LUZ PHILIPPE Interpreted By: Marquis Hare MD, 11/16/2023 10:48 AM Narrative 11/16/2023 10:49 [place] [address] Examination: Digital screening mammogram with CAD. Clinical history: Asymptomatic patient presents for routine screening. Comparison: 02/12/2022, 12/17/2010. Technique: Bilateral digital mammograms. The exam was interpreted with the use of a computer-aided detection (CAD) system. Additional 3-D tomosynthesis images were acquired. Tissue density: The breast tissue contains scattered fibroglandular densities. Findings: The breast tissue contains scattered fibroglandular densities. Benign-appearing calcification noted. There are multiple benign dermal lesions, some identified by markers. No suspicious mass, microcalcification or area of architectural distortion can be identified. From a mammographic standpoint, routine followup in one year would seem adequate. Luz Philippe PA-C MAMMO Final Resul t * CT LUNG SCREENING (06/14/2023 8:14 AM CDT) Anatomical Region Laterality Modality Chest Computed Tomogra phy 06/16/2023 6:10 AM CDT Impressions 06/16/2023 6:12 AM CDT IMPRESSION: 1. LUNG-RADS category 1: Negative 2. LUNG-RADS category S: Negative 3. Other incidental findings as above. RECOMMENDATIONS: Follow-up LDCT Chest in 12 months (on or around May 2024). Referred By: REHANA JOHN Interpreted By: Kip Del Angel MD, 06/16/2023 6:10 AM Narrative 06/16/2023 6:12 AM CDT EXAM: LUNG SCREENING LOW-DOSE CT THORAX WITHOUT CONTRAST DATE: 06/14/2023 HISTORY: Asymptomatic patient meeting NCCN high-risk criteria for lung screening. Smoking history FORMER SMOKER X 2 YEARS SMOKER X 25 YEARS @ 3 PPD COMPARISON: 09/05/2018, 06/14/2022 TECHNIQUE: Noncontrast, helical, low-dose CT (LDCT) chest per standard departmental protocol. Automated exposure control was utilized for dose reduction. FINDINGS: Lung Screening Specific (LUNG-RADS): Negative Old granulomata Potentially Significant Incidentals (LUNG-RADS category S): None. Pulmonary Incidentals: Surgical suture and linear atelectasis left side. Other Incidentals: Coronary artery calcification. Prior cholecystectomy. Surgical suture of the stomach. Degenerative spine. Procedure Note Kip Del Angel MD - 06/16/2023 EXAM: LUNG SCREENING LOW-DOSE CT THORAX WITHOUT CONTRAST DATE: 06/14/2023 HISTORY: Asymptomatic patient meeting NCCN high-risk criteria for lungscreening. Smoking history FORMER SMOKER X 2 YEARS SMOKER X 25 YEARS @ 3 PPD COMPARISON: 09/05/2018, 06/14/2022 TECHNIQUE: Noncontrast, helical, low-dose CT (LDCT) chest per standarddepartmental protocol. Automated exposure control was utilized for dosereduction. FINDINGS: Lung Screening Specific (LUNG-RADS): Negative Old granulomata Potentially Significant Incidentals (LUNG-RADS category S): None. Pulmonary Incidentals: Surgical suture and linear atelectasis left side. Other Incidentals: Coronary artery calcification. Prior cholecystectomy.Surgical suture of the stomach. Degenerative spine. IMPRESSION: 1. LUNG-RADS category 1: Negative 2. LUNG-RADS category S: Negative 3. Other incidental findings as above. RECOMMENDATIONS: Follow-up LDCT Chest in 12 months (on or around May2024). Referred By: REHANA JOHN Interpreted By: Kip Del Angel MD, 06/16/2023 6:10 AM Rehana John MD CT Final Resul t * HEPATITIS PANEL,ACUTE (03/12/2022 10:22 AM ARABIC TEACHER) Pathologist [facility] HEPATITIS B SURFACE AG NON-REACT DANII NON-REACT DANII 03/12/2022 3:25 PM ARABIC TEACHER [facility] Comment:HBsAg NOT DETECTED. HEP B CORE IGM NON-REACT DANII NON-REACT DANII 03/12/2022 3:25 PM ARABIC TEACHER [facility] Comment: IgM ANTI HBc NOT DETECTED. DOES NOT EXCLUDE THE POSSIBILITY OF EXPOSURE TO OR INFECTION WITH HBV. NO RETEST REQUIRED. HIGH DOSES OF BIOTIN MAY INTERFERE WITH THIS TEST RESULT. CORRELATION TO CLINICAL HISTORY AND PRESENTATION RECOMMENDED. HAV IGM NON-REACT DANII NON-REACT DANII 03/12/2022 3:25 PM ARABIC TEACHER [facility] Comment: IgM ANTI HAV NOT DETECTED. DOES NOT EXCLUDE THE POSSIBILITY OF EXPOSURE TO OR INFECTION WITH HAV. LEVELS OF IgM ANTI HAV MAY BE BELOW THE CUTOFF IN EARLY INFECTION. HEPATITIS C AB NON-REACT DANII NON-REACT DANII 03/12/2022 3:25 PM ARABIC TEACHER [facility] Comment: ANTIBODIES TO HCV NOT DETECTED. DOES NOT EXCLUDE THE POSSIBILITY OF EXPOSURE TO HCV. 03/12/2022 10:2 2 AM ARABIC TEACHER Ryan Rivas MD LABORATORY Final Result [facility] [address] [place] [address], [id number] * (ABNORMAL) LIPID PANEL (01/25/2022 9:27 AM ARABIC TEACHER) Pathologist [facility] CHOLESTEROL 168 <200 MG/DL 01/25/2022 10:54 AM [facility] Comment: THE NATIONAL LIPID ASSOCIATION AND THE NATIONAL CHOLESTEROL EDUCATION PROGRAM (NCEP) HAVE SET THE FOLLOWING GUIDELINES FOR TOTAL CHOLESTEROL IN ADULTS AGES 18 AND UP. DESIRABLE: <200 BORDERLINE HIGH: 200-239 HIGH: > OR = 240 TRIGLYCERIDES 187(H) <150 MG/DL 01/25/2022 10:54 AM [facility] Comment: THE NATIONAL LIPID ASSOCIATION AND THE NATIONAL CHOLESTEROL EDUCATION PROGAM (NCEP) HAVE SET THE FOLLOWING GUIDELINES FOR TRIGLYCERIDES IN ADULTS AGES 18 AND UP. NORMAL: <150 BORDERLINE HIGH: 150 TO 199 HIGH: 200 TO 499 VERY HIGH: >499 HDL 43(L) >49 MG/DL 01/25/2022 10:54 AM [facility] Comment: THE NATIONAL LIPID ASSOCIATION AND THE NATIONAL CHOLESTEROL EDUCATION PROGAM (NCEP) HAVE SET THE FOLLOWING GUIDELINES FOR HDL CHOLESTEROL IN ADULTS AGES 18 AND UP. MALES: >39 FEMALES: >49 LDL-C 88 <100 MG/DL 01/25/2022 10:54 AM [facility] Comment: THE NATIONAL LIPID ASSOCIATION AND THE NATIONAL CHOLESTEROL EDUCATION PROGAM (NCEP) HAVE SET THE FOLLOWING GUIDELINES FOR LDL CHOLESTEROL IN ADULTS AGES 18 AND UP. DESIRABLE: <100 ABOVE DESIRABLE: 100 TO 129 BORDERLINE HIGH: 130 TO 159 HIGH: 160 TO 189 VERY HIGH: >189 VLDL CALCULATION 37 MG/DL 01/26/20 22 10:54 AM [facility] Comment:REFERENCE RANGE NOT ESTABLISHED CHOL/HDL RATIO 3.9 01/25/2022 10:54 AM [facility] Comment:REFERENCE RANGE NOT ESTABLISHED LDL/HDL 2.0 01/25/2022 10:54 AM [facility] Comment:REFERENCE RANGE NOT ESTABLISHED NON HDL CHOLESTEROL 125 MG/DL 01/25/2022 10:54 AM [facility] Comment:REFERENCE RANGE NOT ESTABLISHED 01/25/2022 9:27 AM ARABIC TEACHER us Ryan Rivas MD LABORATORY Final Result [facility] [address] [place], [place] [address] [phone] from Last 3 Months or Most Recently Relevant to Health Maintenance Insurance [employer] MEDICAID Advance Directives * Full Code (Latest Code Status on File) Date Activated Date Inactivated Comments 01/17/2024 5:54 AM 01/17/2024 3:36 PM * Full Code Date Activated Date Inactivated Comments 10/10/2023 9:50 AM 10/10/2023 3:59 PM * Full Code Date Activated Date Inactivated Comments 05/16/2023 1:49 PM 05/17/2023 1:00 PM * Full Code Date Activated Date Inactivated Comments 03/21/2022 8:21 PM 03/23/2022 3:47 PM * Full Code Date Activated Date Inactivated Comments 02/26/2022 1:42 PM 02/26/2022 7:05 PM Care Teams Regroover Relationship Specialty Start Date End Date Leann Woody MD [address] [place] [phone] PCP - General FAMILY PRACTICE 12/08/17 Tirso Rajput MD [address] [place] [phone] Consulting Physician INTERVENTIONAL CARDIOLOGY 01/14/22
--- OUTSIDE RECORDS SUMMARY | 2024-06-10 15:25 | XMS_ITS | Encounter Summary ---
Author Organization [facility] Address [address] [place] [address] Care Team Providers Care Creel Operator Name Role Phone Leann Woody MD Primary Care Provider [phone] Tirso Rajput MD Unavailable Unavailable Encounter Details Date Type Department Care Team (Late st Contact Info) Description 08/05/2018 Abstract SFL CONVERSION [address] [place] [address] , Generic Conversion, Social History Tobacco Use Types Packs/Day Years Used Date Smoking Tobacco: Every Day Cigarettes 1 35 Smokeless Tobacco: Never AUDIT-C Answer Date Recorded Frequency of Alcohol Consumption Never 08/08/2018 Average Number of Drinks Not on file 019 Frequency of Binge Drinking Not on file 07/29 Comments Unknown Sex and Gender Information Value Date Recorded Sex Assigned at Female 03/19/2024 5:58 AM FOOD STYLIST Legal Sex Female 6:59 PM CDT Gender Identity Not on file Sexual Orientation Not on file documented as of this encounter Functional Status documented as of this encounter Plan of Treatment Upcoming Encounters Date Type Department Care Team (Late st Contact Info) Description 06/11/2024 9:45 AM CDT Office Visit [facility] [address] [place] [address] Easton Bowman Jr., DO [address] [place] [address] documented as of this encounter Visit Diagnoses Not on filedocumented in this encounter Additional Health Concerns Infection Onset Date Last Indicated Resolved Time MRSA Comment:Pt chart indicates 2 negative MRSA swabs: 10.10.23 and 01.02.24. Per policy, MRSA flag removed from chart. BETINA Clemons Infection Prevention 03/14/2018 03/14/2018 03/16/2024 8:59 AM FOOD STYLIST COVID-19 Rule Out 11/23/2019 11/23/2019 11/23/2019 3:31 PM CDT COVID-19 Rule Out 02/11/2020 02/11/2020 02/13/2020 12:07 AM FOOD STYLIST COVID-19 Rule Out 04/14/2020 04/14/2020 04/14/2020 10:22 AM FOOD STYLIST COVID-19 Confirmed 04/14/2020 04/14/2020 12:32 AM FOOD STYLIST COVID-19 Rule Out 12/20/2020 12/20/2020 12/20/2020 7:58 PM CDT COVID-19 Rule Out 06/05/2021 06/05/2021 06/05/2021 7:41 PM CDT COVID-19 Rule Out 07/19/2021 07/19/2021 07/19/2021 6:36 PM CDT COVID-19 Rule Out 10/02/2021 10/02/2021 10/02/2021 7:11 PM CDT documented as of this encounter Care Teams Creel Operator Relationship Specialty Start Date End Date Leann Woody MD [address] [place] [address] PCP - General FAMILY PRACTICE 12/08/17 Tirso Rajput MD [address] [place] [address] Consulting Physician INTERVENTIONAL CARDIOLOGY 01/14/22 documented as of this encounter
--- OUTSIDE RECORDS SUMMARY | 2024-06-10 15:25 | XMS_ITS | Encounter Summary ---
Author Organization [facility] Address [address] [place] [address] Care Team Providers Care Machine Accountant Name Role Phone Leann Woody MD Primary Care Provider [phone] Tirso Rajput MD Unavailable Unavailable Encounter Details Date Type Department Care Team (Late st Contact Info) Description 03/25/2020 Hospital Orders Only [facility] [address] [place] [address] Leann Woody MD [address] [place] [phone] Social History Tobacco Use Types Packs/Day Years Used Date Smoking Tobacco: Former Cigarettes 1 35 0 05/02/1983 - 05/01/2018 Smokeless Tobacco: Never Alcohol Use Standard Drinks/Week Comments No 0 (1 standard drink = 0.6 oz pur e alcohol) AUDIT-C Answer Date Recorded Frequency of Alcohol Consumption Never 08/08/2018 Average Number of Drinks Not on file 019 Frequency of Binge Drinking Not on file 07/29 Comments No Sex and Gender Information Value Date Recorded Sex Assigned at Female 03/19/2024 5:58 AM OVER SHORT AND DAMAGE CLERK Legal Sex Female 6:59 PM CDT Gender Identity Not on file Sexual Orientation Not on file COVID-19 Exposure Response Date Recorded In the last month, have you been in contact with someone who was confirmed or suspected to have Coronavirus / COVID-19? No / Unsure 03/27/2020 8:31 AM OVER SHORT AND DAMAGE CLERK documented as of this encounter Functional Status * RETIRED Are you deaf or do you have serious difficulty hearing Answer Date of Assessment Author Status No 10/26/2018 10:13 AM CDT Acti ve documented as of this encounter Plan of Treatment Upcoming Encounters Date Type Department Care Team (Late st Contact Info) Description 06/11/2024 9:45 AM CDT Office Visit [facility] [address] [facility] [address] [place] [address] Easton Bowman Jr., DO [address] [place] [address] documented as of this encounter Visit Diagnoses Diagnosis Chronic osteoarthritis- Primary Osteoarthrosis, unspecified whether generalized or localized, unspecified site documented in this encounter Additional Health Concerns Infection Onset Date Last Indicated Resolved Time MRSA Comment:Pt chart indicates 2 negative MRSA swabs: 10.10.23 and 01.02.24. Per policy, MRSA flag removed from chart. BETINA Clemons Infection Prevention 03/14/2018 03/14/2018 03/16/2024 8:59 AM OVER SHORT AND DAMAGE CLERK COVID-19 Rule Out 04/14/2020 04/14/2020 04/14/2020 10:22 AM OVER SHORT AND DAMAGE CLERK COVID-19 Confirmed 04/14/2020 04/14/2020 12:32 AM OVER SHORT AND DAMAGE CLERK COVID-19 Rule Out 12/20/2020 12/20/2020 12/20/2020 7:58 PM CDT COVID-19 Rule Out 06/05/2021 06/05/2021 06/05/2021 7:41 PM CDT COVID-19 Rule Out 07/19/2021 07/19/2021 07/19/2021 6:36 PM CDT COVID-19 Rule Out 10/02/2021 10/02/2021 10/02/2021 7:11 PM CDT documented as of this encounter Care Teams Machine Accountant Relationship Specialty Start Date End [place] [address] PCP - General FAMILY PRACTICE 12/08/17 [place] [address] [phone] Consulting Physician INTERVENTIONAL CARDIOLOGY 01/14/22 documented as of this encounter
[2024-06-10] MEDS: KETOROLAC 30 MG/ML VIAL (*BKC) IM (15:43)
[2024-06-10 16:13] VITALS: BP 91/55; PULSE 63; RESP 16; TEMP 36.9; O2SAT 96
[2024-06-10 16:14] VITALS: BP 91/55; PULSE 63; RESP 16; TEMP 36.9; O2SAT 96
== END 2024-06-10 16:14 | disposition home or self-care (01) ==
PROVIDERS: Emergency Provider Family Medicine; PCP Family Medicine
DX: S60.221A Contusion of right hand, initial encounter (principal); J44.9 Chronic obstructive pulmonary disease, unspecified; Z87.891 Personal history of nicotine dependence; W22.8XXA Striking against or struck by other objects, initial encounter
CPT/HCPCS: 73130; 96372; 99283; J1885

== ENCOUNTER 2024-11-28 12:34 | Emergency (ER) | payer MEDICARE, MEDICAID, SELFPAY ==
--- NOTE | ~2024-11-28 | XR_ITS ---
EXAMINATION: XR knee RT min 4V, 11/28/2024 12:45 CDT HISTORY: injury/pain COMPARISON: No comparisons available. Findings: No acute fracture or malalignment. The prosthesis intact Soft tissues unremarkable. Impression: No acute fracture or malalignment. Reviewed, dictated and finalized at location P. Impression: No acute fracture or malalignment.
--- OUTSIDE RECORDS SUMMARY | 2024-11-28 12:38 | XMS_ITS | Clinical Summary ---
Author Organization [facility] Address [address] [place] [address] Care Team Providers Care Process Project Engineer Name Role Phone Leann Woody MD Primary Care Provider [phone] Source Comments [facility],non-owned Affiliates and Associated Physician Practices is amultiple site organization consisting of ambulatory clinics and hospital sitesin [place], [place], [place] and [place]. This disclosure is being madepursuant to the Care Everywhere program and may not contain all information available regarding this patient. Last updated 17.[facility] Allergies Active Allergy Reactions Criticality Noted Date [...] 4:07 PM CDT Height 154.9 cm (5' 1) 08/21/2020 4:07 PM CDT Body Mass Index [...] - COLON CA SCREENING 1965 MAMMOGRAM 1965 HIV SCREENING 11/12/1982 HEPATITIS C SCREENING 11/08/1985 DTAP/TDAP/TD VACCINES (1 - Tdap) 11/12/1986 HEPATITIS B VACCINE (1 of 3 - 19+ 3-dose series) 11/12/1986 PNEUMOCOCCAL VACCINE 50+ (1 of 2 - PCV) 11/12/1986 ZOSTER VACCINE (1 of 2) 11/12/2017 SCREENING FOR DIABETES 08/21/2020 DEPRESSION SCREENING 02/29/2024 COVID-19 VACCINE (1 - 2023-2 5 season) 2024 INFLUENZA VACCINE (#1) 2024 HIB VACCINE Aged Out No longer [...] age to complete this topic Insurance AETNA Care Teams Process Project Engineer Relationship Specialty Start Date End Date Leann Woody MD PCP - General Family Medicine 11/13/20
--- OUTSIDE RECORDS SUMMARY | 2024-11-28 12:38 | XMS_ITS | Continuity of Care Document ---
Author Organization [facility] Address [address] [place] [address] Insurance Providers Payer Plan Claims Address Claims Phone Policy Number Group Number Relation Employer Guarantor Name Guarantor Guarantor Address Guarantor Phone [employer] [facility] [id number] Self Tania [place] 1965 [address] [place] [address] [place] [employer] aid [id number] Self [place] [address] [place] [address] [employer] [id number], [place], [place] [id number] Self [place] 1965 [address] [place] [address] Problems Unknown Problems Results No Results Allergies, adverse reactions, alerts No known allergies and adverse reactions Medications No administered medications reported Vital Signs No vital signs reported Social History No smoking Hx information available
--- NOTE | 2024-11-28 12:43 | ED.LOWEXIN ---
HPI - Extremity Injury (Lower) General Chief Complaint: Extremity Injury, Lower Stated Complaint: Knee injury Time Seen by Provider: 11/28/24 12:43 Source: patient Mode of arrival: ambulatory Limitations: no limitations History of Present Illness HPI Narrative: Patient is a 59-year-old female with a right knee pain after a fall at home. She has history of at least 4 prior surgeries to this right knee. She has upcoming surgery again. She has hydrocodone which is not working for her pain. She has significant recurrent surgeries to the right knee. She has swelling and pain. MD complaint: knee injury (Right) Onset (ago): day(s) (1) Type of Injury: blunt Place: home Severity: severe Severity scale (1-10): 8 Relieving factors: immobilization Exacerbating factors: weight bearing, movement and palpation Context: fall and direct blow Associated symptoms: snap/pop sensation, swelling and able to partially bear weight Other symptoms: none Treatments prior to arrival: cold therapy and NSAIDS Related Data Home Medications ?Medication ?Instructions ?Recorded ?Confirmed ?Last Taken ?Type aripiprazole 10 mg tablet 10 mg PO DAILY 09/17/21 11/28/24 Unknown History atorvastatin 80 mg tablet 80 mg PO QHS 09/17/21 11/28/24 Unknown History calcium 600 mg (as 1 cap PO BID 09/17/21 11/28/24 Unknown History carbonate)-vitamin D3 10 mcg (400 unit) capsule cetirizine 10 mg tablet 10 mg PO DAILY PRN ALLERGIES 09/17/21 11/28/24 Unknown History cholecalciferol (vitamin D3) 25 25 mcg PO DAILY 09/17/21 11/28/24 Unknown History mcg (1,000 unit) capsule cyanocobalamin (vitamin B-12) 1,000 mcg IM MONTHLY 09/17/21 11/28/24 Unknown History 1,000 mcg/mL injection kit denosumab 60 mg/mL subcutaneous 60 mg subcut [id number] 09/17/21 11/28/24 Unknown History syringe (Prolia) fluoxetine 20 mg capsule 20 mg PO DAILY 09/17/21 11/28/24 Unknown History fluticasone propionate 50 2 spray intranasal DAILY 09/17/21 11/28/24 Unknown History mcg/actuation nasal spray,suspension hydrocodone 5 mg-acetaminophen 325 1 - 2 tablet PO BID PRN Pain 09/17/21 11/28/24 Unknown History mg tablet levothyroxine 200 mcg tablet 200 mcg PO DAILY 09/17/21 11/28/24 Unknown History (Synthroid) omega 4-blh-onx-fish oil 60 mg-90 1 cap PO DAILY 09/17/21 11/28/24 Unknown History mg-500 mg capsule (Fish Oil) pantoprazole 40 mg tablet,delayed 40 mg PO QAM 09/17/21 11/28/24 Unknown History release gabapentin 600 mg tablet 300 mg PO QHS 03/31/22 11/28/24 Unknown History alprazolam 0.5 mg tablet 0.5 mg PO BID 12/06/22 11/28/24 Unknown History trazodone 100 mg tablet 100 mg PO HS PRN Insomnia 12/06/22 11/28/24 Unknown History Allergies Allergy/AdvReac Type Severity Reaction Status Date / Time acetaminophen (From AdvReac Unknown Unknown Verified 11/28/24 13:22 Darvocet-N 100) codeine AdvReac Unknown Nausea Verified 11/28/24 13:22 cyclobenzaprine AdvReac Unknown sedating Verified 11/28/24 13:22 propoxyphene (From AdvReac Unknown Unknown Verified 11/28/24 13:22 Darvocet-N 100) tizanidine AdvReac Unknown Hypotension Verified 11/28/24 13:22 Review of Systems Review of Systems: All systems reviewed & are unremarkable except as noted in HPI and below Constitutional: Constitutional: Reports no additional constitutional complaints Eyes: Eyes: Reports no additional eye complaints ENT: Reports system reviewed and no additional complaints, except as documented Cardiovascular: Cardiovascular: Reports no additional cardiovascular complaints Respiratory: Respiratory: Reports no additional respiratory complaints Gastrointestinal: Gastrointestinal: Reports no additional gastrointestinal complaints Genitourinary: Genitourinary: Reports no additional female genitourinary complaints Musculoskeletal: Musculoskeletal: Reports no additional musculoskeletal complaints Integumentary/Breasts: Skin/Breast: Reports system reviewed and no additional complaints, except as docu Neurologic: Reports system reviewed and no additional complaints, except as documented Psychiatric: Psychiatric: Reports no additional psychiatric complaints Endocrine: Endocrine: Reports no additional endocrine complaints Hematologic/Lymphatic: Hematologic/Lymphatic: Reports no additional hematologic/lymphatic complaints Allergic/Immunologic: Allergic/Immunologic: Reports no additional allergic/immunologic complaints PMFSH Past Medical History Medical History delivery delivered Carpal tunnel syndrome Osteoporosis Thyroid disease Ulcer Chronic GERD Arthritis Anxiety Asthma COPD (chronic obstructive pulmonary disease) Sciatica Migraines Surgical History Surgical History Hx of cholecystectomy History of lung surgery lung needle biopsy per patient many years ago History of hysterectomy Family History Family History Father Hypertension Mother Asthma Depression Cerebrovascular accident Social History Social History Smoking packs per day: 1 Smoking cigarettes per day: 20.0 Years smoked: 30 Smoking pack-years: 30.00 Smoking status: Former smoker (quit 2 mo ago) Tobacco type: cigarettes Alcohol intake: never Substance use: current Substance use type: marijuana Last use: rare, last 1 month ago to help with sleep Living arrangements: with family Occupation/Education: other Additional occupation/education comments: Disabled [employer] Exam Const: General: healthy appearing Nutritional Appearance: well nourished Orientation/consciousness: patient oriented x3 HENMT: Head: normal to inspection Ears: external ears normal Face/Nose/Sinus: Normal external nose present Eyes: Conjunctivae: conjunctivae normal Pupils: Equal, round and reactive pupils present EOM: EOMs intact bilaterally Neck: Neck: normal visual inspection Chest: Chest palpation & inspection: normal inspection of the chest Resp: Effort & Inspection: normal respiratory effort and not labored Auscultation: clear to auscultation bilaterally and no crackles Cardio: Rate: regular rate Rhythm: regular rhythm Heart sounds: no murmurs GI: Inspection: non-distended GI Palp: Yes Soft to palpation and No Tenderness to palpation present (GI) Auscultation: normal bowel sounds : General: Yes bladder normal to palpation Back/Spine/Pelvis: Back: no CVA tenderness Skin: General skin exam: normal color Rashes: no rashes Wounds: no wounds Neuro: General: patient oriented x3, moves all extremities and no meningeal signs Extrem: General: normal to inspection, no clubbing, cyanosis or edema and no pedal edema Other: Right knee has postop changes and tenderness to the right knee lateral aspect tenderness to palpation and rotation Psych: Mental Status: mental status grossly normal Affect: normal affect Attitude: cooperative Course Vital Signs Vital signs: Vital Signs Temperature 36.9 C 11/28/24 13:30 Pulse Rate 69 11/28/24 13:30 Respiratory Rate 16 11/28/24 13:30 Blood Pressure 115/61 11/28/24 13:30 Pulse Oximetry 97 11/28/24 13:30 Oxygen Delivery Room Air 11/28/24 13:30 Temperature 37.1 C 11/28/24 13:50 Pulse Rate 66 11/28/24 13:50 Respiratory Rate 18 11/28/24 13:50 Blood Pressure 110/49 L 11/28/24 13:50 Pulse Oximetry 98 11/28/24 13:50 Oxygen Delivery Room Air 11/28/24 13:50 MDM - Extremity Injury (Lower) MDM Narrative Medical decision making narrative: Patient is a 59-year-old female with a right ankle injury to chronic pain of her right knee today. She took a fall. X-ray. Imaging Data Attestation: I personally reviewed and interpreted this imaging study as follows: Radiologist's impression: Right knee x-ray is negative for acute process and prosthesis is intact Discharge Plan Discharge Clinical Impression: Derangement of knee Qualifiers: Laterality: right Qualified Code(s): M23.91 - Unspecified internal derangement of right knee Patient Disposition: Home Condition: Stable Instructions: Knee Pain (ED) Patient Language: Pashto Prescriptions: New oxycodone-acetaminophen 5-325 mg tablet 1 tablet PO Q8H PRN (Reason: pain) Qty: 15 0RF No Action alprazolam 0.5 mg tablet 0.5 mg PO BID trazodone 100 mg tablet 100 mg PO HS PRN (Reason: Insomnia) pantoprazole 40 mg tablet,delayed release (DR/EC) 40 mg PO QAM hydrocodone-acetaminophen 5-325 mg tablet 1 - 2 tablet PO BID PRN (Reason: Pain) omega 8-erq-nsk-fish oil [Fish Oil] 60-90-500 mg capsule 1 cap PO DAILY atorvastatin 80 mg tablet 80 mg PO QHS levothyroxine [Synthroid] 200 mcg tablet 200 mcg PO DAILY cyanocobalamin (vitamin B-12) 1,000 mcg/mL kit 1,000 mcg IM MONTHLY calcium carbonate-vitamin D3 600 mg-10 mcg (400 unit) capsule 1 cap PO BID Prolia 60 mg/mL syringe 60 mg subcut [id number] cetirizine 10 mg tablet 10 mg PO DAILY PRN (Reason: ALLERGIES) aripiprazole 10 mg tablet 10 mg PO DAILY fluoxetine 20 mg capsule 20 mg PO DAILY fluticasone propionate 50 mcg/actuation spray,suspension 2 spray intranasal DAILY Rx Instructions: administer into each nostril cholecalciferol (vitamin D3) 25 mcg (1,000 unit) capsule 25 mcg PO DAILY gabapentin 600 mg tablet 300 mg PO QHS albuterol sulfate [Ventolin HFA] 90 mcg/actuation HFA aerosol inhaler 1 puff inhalation Q4H PRN (Reason: shortness of breath or wheezing) 30 Days Qty: 8.5 3RF Breztri Aerosphere 160-9-4.8 mcg/actuation HFA aerosol inhaler 2 inh inhalation QAM AND QPM Qty: 10.7 5RF Rx Instructions: Rinse and spit after use. ferrous sulfate 325 mg (65 mg iron) tablet 325 mg PO DAILY Qty: 30 1RF Follow-up/Referrals: UNKNOWN,DOCTOR [Non-Staff] Time of Disposition: 13:29
--- OUTSIDE RECORDS SUMMARY | 2024-11-28 13:11 | XMS_ITS | Clinical Summary ---
Author Organization [facility] Address [address] [place] [address] Care Team Providers Care Food Preparation Supervisor Name Role Phone Leann Woody MD Primary Care Provider [phone] Source Comments [facility],non-owned Affiliates and Associated Physician Practices is amultiple site organization consisting of ambulatory clinics and hospital sitesin [place], [place], [place] and [place]. This disclosure is being madepursuant to the Care Everywhere program and may not contain all information available regarding this patient. Last updated 17.[facility] Allergies Active Allergy Reactions Criticality Noted Date [...] complete this topic Insurance [employer] Care Teams Food Preparation Supervisor Relationship Specialty Start Date End Date Leann Woody MD PCP - General Family Medicine 11/13/20
[2024-11-28 13:30] VITALS: BP 115/61; PULSE 69; RESP 16; TEMP 36.9; O2SAT 97
[2024-11-28] MEDS: KETOROLAC (*BKC) 60 MG/2 ML VIAL IM (13:41)
[2024-11-28 13:50] VITALS: BP 110/49; PULSE 66; RESP 18; TEMP 37.1; O2SAT 98
== END 2024-11-28 14:01 | disposition home or self-care (01) ==
PROVIDERS: Emergency Provider Emergency Medicine
DX: M23.91 Unspecified internal derangement of right knee (principal); J44.9 Chronic obstructive pulmonary disease, unspecified; Z79.891 Long term (current) use of opiate analgesic; Z79.899 Other long term (current) drug therapy; Z87.891 Personal history of nicotine dependence; W19.XXXA Unspecified fall, initial encounter; Y92.009 Unspecified place in unspecified non-institutional (private) residence as the place of occurrence of the external cause
CPT/HCPCS: 73564; 96372; 99283; J1885